=== PATIENT | female | born 1950 | race Caucasian/White ===

== ENCOUNTER 2016-09-09 15:26 | Emergency (ER) | payer MEDICARE, MEDICAID ==
[~2016-09-09] VITALS: Ht 165.1 cm; Wt 100.0 kg
[~2016-09-09 15:26] MED LIST: ASPI-973 PO; CHOL10008 PO; CITA10TA9 PO; CYAN100T PO; CYAN500 PO; CYCL5TAB PO; DOCU-41 PO; FERROUS GLUCON325 M1 PO; GAS RELIEF PO; GLIP10TA10 PO; GLUC-104 PO; HYDR-656 PO; LEVO125T6 PO; LOPE2CAP PO; LORA10CA PO; METO-272 PO; METO2.5T12 PO; MULT1CAP33 PO; NITR0.4T SL; PANT40TA3 PO; POLY17PO6 PO; POTA20TA7 PO; SENN-133 PO; SIMV80TA4 PO; TORS20TA PO; TRAM50TA2 PO
[2016-09-09 15:29] VITALS: BP 131/80; PULSE 70; RESP 18; O2SAT 97
--- NOTE | 2016-09-09 16:05 | ED.REPORT ---
HPI-General Illness Date of Service Sep 09, 2016 ED Provider: ClaraannDaivd 65 year old female with a history of hemorrhoids, constipation, polyps, diverticulosis, and sigmoid colon malformation presents to the ER complaining of a week of LLQ abdominal pain and rectal bleeding. She reports bright red blood in her stool on and off for the past week. Associated symptoms include constipation, melena, shortness of breath, and dizziness. Currently on Keflex to treat UTI. Patient has an extensive psychiatric history and is a rambling and tangential historian, making it difficult to obtain a coherent history. Nursing Notes Stated Complaint: RECTAL BLEEDING Chief Complaint: General Complaint Nursing Notes Reviewed: Yes Allergies: Coded Allergies: verapamil (Verified Allergy, Unknown, 04/25/15) Scheduled Aspirin (Aspirin) 81 Mg Tablet 81 MG PO DAILY Cholecalciferol (Vitamin D3) (Vitamin D3) 1,000 Unit Tab.chew 1,000 UNIT PO DAILY Citalopram (Citalopram) 10 Mg Tablet 10 MG PO AM Cyanocobalamin (Vitamin B12) 1,000 Mcg Tablet 1,000 MCG PO NOON Cyanocobalamin (Vitamin B-12) (Vitamin B-12) 100 Mcg Tablet 100 MCG PO DAILY Cyclobenzaprine (Cyclobenzaprine) 5 Mg Tablet 5 MG PO HS Docusate Sodium (Colace) 100 Mg Capsule 100 MG PO BID Ferrous Gluconate (Ferrous Gluconate) 325 Mg Tablet 325 MG PO DAILY Glipizide (Glipizide) 10 Mg Tablet 10 MG PO BID Glucosa Ferguson 2Kcl/Chondroitin Ferguson (Glucosamine Chondroitin Caplet) 1 Each Tablet 1 EACH PO DAILY Levothyroxine (Levothyroxine) 125 Mcg Tablet 125 MCG PO DAILY Loperamide (Loperamide) 2 Mg Capsule 2 MG PO PRN Metolazone (Metolazone) 2.5 Mg Tablet 2.5 MG PO DAILY Metoprolol Succinate ER (Metoprolol Succinate ER) 50 Mg Tab.er.24h 50 MG PO AM Multivitamin (Multivitamins) 1 Each Capsule 1 EACH PO DAILY Pantoprazole DR (Pantoprazole DR) 40 Mg Tablet.dr 40 MG PO BID Polyethylene Glycol 3350 (Miralax) 17 Gm Powd.pack 17 GM PO DAILY Potassium Chloride ER (Klor-Con M20) 20 Meq Tablet 20 MEQ PO QID Simvastatin (Simvastatin) 80 Mg Tablet 80 MG PO HS Torsemide (Demadex) 20 Mg Tablet 40 MG PO BID Scheduled PRN ([Gas Relief]) 125 MG PO PRN PRN Loratadine (Claritin) 10 Mg Capsule 10 MG PO DAILY PRN PRN allergies Nitroglycerin SL (Nitrostat) 0.4 Mg Tab.subl 0.4 MG SL Q5MIN PRN PRN For Chest Pain Sennosides (Senna) 8.6 Mg Tablet 8.6 MG PO DAILY PRN PRN For Constipation Tramadol (Tramadol) 50 Mg Tablet 50 MG PO TID PRN PRN For Pain hydrOXYzine Hcl (HydrOXYzine Hcl) 25 Mg Tablet 25 MG PO TID PRN PRN For Itching General Time Seen by MD: 16:05 Chief Complaint Abdominal pain, Other (Rectal Bleeding) Hx Obtained From: Patient Arrived By: Walk-in Sudden in Onset?: No Onset Occurred: 1 week ago Symptom Duration: Since onset Location: : Abdomen Quality: Painful Severity: Current: Moderate Severity: Maximum: Moderate Associated with: Reports: Dizziness, Shortness of breath Additional Notes: Constipation Past Medical History Past Medical History Edema, pericardial effusion, Hemorrhoids, constipation Per old reports: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 Otherwise patient lives on her own. Alcohol Use: Denies alcohol use Drug Use: Denies drug use Ambulatory Status Walker Review of Systems Full Review of Systems Constitutional: Denies: Chills, Fever Respiratory: Reports: Shortness of breath, Denies: Non-productive cough Cardiovascular: Denies: Chest pain GI: Reports: Abdominal pain, Bloody/tarry stool, Constipation, Hematochezia, Melena, Denies: Vomiting Neurologic: Reports: Dizziness Complete sys rev & neg: except as marked. Physical Exam Vital Signs Initial VS: Reviewed Head / Eyes: Atraumatic, Normocephalic Neck: Supple, Non-tender, Full range of motion Extremities: Vascular intact, Neuro intact, No swelling, No tenderness Skin: Warm, Dry, No cyanosis Neurologic: Alert, Oriented, Nonfocal General/Constitutional: Awake, Alert, Well developed, Well nourished Respiratory / Chest: Breath sounds NL, No respiratory distress, No rales, No rhonchi, No wheezing Cardiovascular: Heart rate NL, Regular rhythm, No gallop, No rubs Heart Sounds / Murmur: Positive: Systolic murmur present.. Bilateral lower extremity edema. Abdomen: Soft, No guarding, No rebound, No distention Tenderness/Guarding/Rebound: Positive: Tender LLQ... (Moderate), Tender diffuse Rectal for Blood: Positive: Blood - occult heme +, Blood, grossly present Rectum / Perineum Abnl: Positive: Hemorrhoid external (5), Hemorrhoid internal (1, Left lateral) Interpretation & Diagnostics Lab Results Interpretation Test 09/09/16 17:50 09/09/16 18:01 White Blood Count 7.7th/mm3 (3.8-10.1) Red Blood Count 5.04mil/mm3 (3.90-5.20) Hemoglobin 15.6g/dL (12.0-15.6) Hematocrit 48.0% (35.0-46.0) Mean Corpuscular Volume 95.2fL (81-100) Mean Corpuscular Hemoglobin 31.0pg (27.0-35.0) Mean Corpuscular Hemoglobin Concent 32.5% (32.0-37.0) Red Cell Distribution Width 16.6% (12.3-15.4) Platelet Count 149bil/L (150-400) Neutrophils (%) (Auto) 70.4% (40-74) Lymphocytes (%) (Auto) 15.2% (14-46) Monocytes (%) (Auto) 11.4% (4-12) Eosinophils (%) (Auto) 2.3% (0-5) Basophils (%) (Auto) 0.4% (0-3) Sodium Level 136mEq/L (134-144) Potassium Level 3.5mEq/L (3.5-5.2) Chloride Level 95mEq/L (97-108) Carbon Dioxide Level 27mmol/L (18-29) Blood Urea Nitrogen 23mg/dL (8-27) Creatinine 1.11mg/dL (0.57-1.00) Estimat Glomerular Filtration Rate 71mL/min (>59) Glucose Level 96mg/dL (60-99) Calcium Level 9.8mg/dL (8.5-10.1) Total Bilirubin 0.7mg/dL (0.0-1.2) Aspartate Amino Transf (AST/SGOT) 22U/L (0-50) Alanine Aminotransferase (ALT/SGPT) 16U/L (0-32) Alkaline Phosphatase 130U/L (25-165) Total Protein 8.8g/dL (6.4-8.4) Albumin 3.8g/dL (3.4-5.0) Hold [place] Top Tube Received (Received) Re-Eval/Medical Decision Med Decision/Clinical Course Patient does have noted rectal bleeding but given that this has been ongoing for over 1 week intermittently and that her vitals and blood counts are stable/ normal here today I have reassured her and advised her to follow-up as an outpatient. I suggested she keep her stool soft with stool softeners.. Patient understands and agrees with the plan. She is reassured by her workup today Source of Hx: Old records Time of Eval: 18:23 Re-Evaluation/Progress Note: Discussed lab results and plan to discharge. Patient is amenable to the plan. Return precautions given. All other questions addressed. Counseled Regarding: Diagnosis, Lab results, Need for follow-up, When/why to return to ED Discharge & Departure Primary Impression: Hemorrhoid Hemorrhoid type: unspecified Qualified Code: K64.9 - Unspecified hemorrhoids Additional Impression: Rectal bleeding Disposition: Home Discharge Condition All VS Reviewed: Yes Condition: Stable Patient Instructions: Hemorrhoids (DC), Rectal Bleeding (DC) Additional Instructions: Your workup today was reassuring. I do not believe that there is any dangerous cause for your symptoms at this time. I think that your hemorrhoids are the source of your bleeding. Your blood counts were all normal. Follow up with your primary care provider this week. Return to the ER if you develop any worsening or concerning symptoms. Referrals: Brittany Leyva MD (PCP) Scarlet Attestation Portions of this note were transcribed by Cameron Long. I, Dr. Torres personally performed the history, physical exam and medical decision-making; I reviewed and confirmed the accuracy of the information in the transcribed note. Signed by: Scarlet Joseph, 09/09/2016 and 18:28 copies to: Brittany Leyva MD, Gary R DO Sep 09, 2016 16:05 CAMERON LONG Sep 09, 2016 17:05
[2016-09-09 18:16] LABS: BASOPHILS % (AUTO) 0.4 % (0-3); EOSINOPHILS % (AUTO) 2.3 % (0-5); MONOCYTES % (AUTO) 11.4 % (4-12); Mean Corpuscular Volume 95.2 fL (81-100); NEUTROPHILS % (AUTO) 70.4 % (40-74); Platelet Count 149 bil/L (150-400)
[2016-09-09 18:54] VITALS: BP 129/79; PULSE 70; RESP 18; O2SAT 97
== END 2016-09-09 18:56 | disposition home or self-care (01) ==
LOC: SED 15:26
DX: K64.8 Other hemorrhoids (principal); K62.5 Hemorrhage of anus and rectum; I25.10 Atherosclerotic heart disease of native coronary artery without angina pectoris; I11.0 Hypertensive heart disease with heart failure; I50.9 Heart failure, unspecified; E11.9 Type 2 diabetes mellitus without complications; F17.200 Nicotine dependence, unspecified, uncomplicated; Z79.82 Long term (current) use of aspirin
CPT/HCPCS: 36415; 80053; 82272; 85025; 99283; G0463

== ENCOUNTER 2016-11-08 09:12 | Inpatient (IN) | payer MEDICARE, MEDICAID ==
[2016-11-08] VITALS (9 sets, daily range): BP systolic 97–112; BP diastolic 52–74; PULSE 72–80; RESP 16–20; O2SAT 96–98
[~2016-11-08] VITALS: Ht 170.2 cm; Wt 102.7 kg
--- NOTE | 2016-11-08 09:38 | ED.REPORT ---
HPI-General Illness Date of Service Nov 08, 2016 ED Provider: Isai Angel MD The patient is a 65 year old female with a history of hemorrhoids, constipation , polyps, diverticulosis, and sigmoid colon malformation who presents to the ED via EMS due to dizziness onset today. Associated symptoms include nausea, trouble sleeping, weak, fatigue, and black stool. She had blood work done earlier today which showed extremely low iron levels. She had an endoscopy procedure done 06/17/[address] Tim Allen (See PMH) Her PCP is Dr. Jackie Leyva at [facility]. Patient has an extensive psychiatric history and is a rambling and tangential historian, making it difficult to obtain a coherent history. Nursing Notes Stated Complaint: DIZZINESS Chief Complaint: General Complaint Nursing Notes Reviewed: Yes Allergies: Coded Allergies: Penicillins (Verified Allergy, Severe, 11/08/16) azithromycin (Verified Allergy, Severe, 11/08/16) Tetracyclines (Verified Allergy, Unknown, 11/08/16) verapamil (Verified Allergy, Unknown, 04/25/15) Uncoded Allergies: ERYTHROMYCINS (Allergy, Severe, 11/08/16) NAPROSEN (Adverse Reaction, Severe, 11/08/16) Scheduled Aspirin (Aspirin) 81 Mg Tablet 81 MG PO DAILY Cholecalciferol (Vitamin D3) (Vitamin D3) 1,000 Unit Tab.chew 1,000 UNIT PO DAILY Citalopram (Citalopram) 10 Mg Tablet 10 MG PO AM Cyanocobalamin (Vitamin B12) 1,000 Mcg Tablet 1,000 MCG PO NOON Cyanocobalamin (Vitamin B-12) (Vitamin B-12) 100 Mcg Tablet 100 MCG PO DAILY Cyclobenzaprine (Cyclobenzaprine) 5 Mg Tablet 5 MG PO HS Docusate Sodium (Colace) 100 Mg Capsule 100 MG PO BID Ferrous Gluconate (Ferrous Gluconate) 325 Mg Tablet 325 MG PO DAILY Glipizide (Glipizide) 10 Mg Tablet 10 MG PO BID Glucosa Ferguson 2Kcl/Chondroitin Ferguson (Glucosamine Chondroitin Caplet) 1 Each Tablet 1 EACH PO DAILY Levothyroxine (Levothyroxine) 125 Mcg Tablet 125 MCG PO DAILY Loperamide (Loperamide) 2 Mg Capsule 2 MG PO PRN Metolazone (Metolazone) 2.5 Mg Tablet 2.5 MG PO DAILY Metoprolol Succinate ER (Metoprolol Succinate ER) 50 Mg Tab.er.24h 50 MG PO AM Multivitamin (Multivitamins) 1 Each Capsule 1 EACH PO DAILY Pantoprazole DR (Pantoprazole DR) 40 Mg Tablet.dr 40 MG PO BID Polyethylene Glycol 3350 (Miralax) 17 Gm Powd.pack 17 GM PO DAILY Potassium Chloride ER (Klor-Con M20) 20 Meq Tablet 20 MEQ PO QID Simvastatin (Simvastatin) 80 Mg Tablet 80 MG PO HS Torsemide (Demadex) 20 Mg Tablet 40 MG PO BID Scheduled PRN ([Gas Relief]) 125 MG PO PRN PRN Loratadine (Claritin) 10 Mg Capsule 10 MG PO DAILY PRN PRN allergies Nitroglycerin SL (Nitrostat) 0.4 Mg Tab.subl 0.4 MG SL Q5MIN PRN PRN For Chest Pain Sennosides (Senna) 8.6 Mg Tablet 8.6 MG PO DAILY PRN PRN For Constipation Tramadol (Tramadol) 50 Mg Tablet 50 MG PO TID PRN PRN For Pain hydrOXYzine Hcl (HydrOXYzine Hcl) 25 Mg Tablet 25 MG PO TID PRN PRN For Itching General Time Seen by MD: 09:36 Chief Complaint Dizziness Hx Obtained From: Patient Arrived By: Ambulance Sudden in Onset?: Yes Onset Occurred: Yesterday Symptom Duration: Since onset Severity: Current: No pain currently Recent Healthcare: Recent doctor visit Similar Sx Previous: Yes Past Medical History Past Medical History Notes: Endoscopy Procedure 06/17/13: ENDOSCOPIC DIAGNOSES: 1. Diverticulosis. 2. Hemorrhoids. 3. Colon polyps. 4. Possible sigmoid arteriovenous malformation versus flat polyp. RECOMMENDATIONS: 1. Await histopathology to determine the best recommendation for surveillance colonoscopy. 2. No obvious findings were made today to account for the patient's hematologic picture. If anemia continues or the patient continues to demonstrate heme-positive stool, then I would recommend she be considered for capsule endoscopy. 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 Otherwise patient lives on her own. Alcohol Use: Denies alcohol use Drug Use: Denies drug use Ambulatory Status Walker Review of Systems Full Review of Systems Constitutional: Reports: Fatigue, Weakness - generalized GI: Reports: Bloody/tarry stool, Nausea Neurologic: Reports: Dizziness Complete sys rev & neg: except as marked. Physical Exam Vital Signs Vital Signs Date Time Temp Pulse Resp B/P Pulse Ox O2 Delivery O2 Flow Rate FiO2 11/08/16 12:40 76 18 99/53 98 Room Air 11/08/16 09:28 36.7 75 18 111/54 97 Room Air Initial VS: Reviewed Head / Eyes: Atraumatic, Normocephalic ENT: Mucous membranes moist, Conjunctiva normal Neck: Supple, Non-tender Extremities: Vascular intact, No swelling Psychiatric: Mood/affect normal, Behavior normal General/Constitutional: Awake, Alert, Cooperative Respiratory / Chest: Atraumatic, Breath sounds NL, Breath sounds = bilat Heart Sounds / Murmur: Positive: Murmur present... (III/) Abdomen: No guarding, No palpable mass Tenderness/Guarding/Rebound: Positive: Tender LLQ... Rectal for Blood: Positive: Blood - occult heme + (mild) brown stool Interpretation & Diagnostics Lab Results Interpretation Result Diagram: 11/08/16 1047 11/08/16 1047 Test 11/08/16 10:47 11/08/16 11:10 White Blood Count 12.1th/mm3 (3.8-10.1) Red Blood Count 2.65mil/mm3 (3.90-5.20) Hemoglobin 7.7g/dL (12.0-15.6) Hematocrit 24.1% (35.0-46.0) Mean Corpuscular Volume 90.9fL (81-100) Mean Corpuscular Hemoglobin 29.1pg (27.0-35.0) Mean Corpuscular Hemoglobin Concent 32.0% (32.0-37.0) Red Cell Distribution Width 15.3% (12.3-15.4) Platelet Count 328bil/L (150-400) Neutrophils (%) (Auto) 79.6% (40-74) Lymphocytes (%) (Auto) 10.4% (14-46) Monocytes (%) (Auto) 8.8% (4-12) Eosinophils (%) (Auto) 0.3% (0-5) Basophils (%) (Auto) 0.2% (0-3) Sodium Level 116mEq/L (134-144) Potassium Level 3.8mEq/L (3.5-5.2) Chloride Level 77mEq/L (97-108) Carbon Dioxide Level 20mmol/L (18-29) Blood Urea Nitrogen 40mg/dL (8-27) Creatinine 1.84mg/dL (0.57-1.00) Estimat Glomerular Filtration Rate 40mL/min (>59) Glucose Level 199mg/dL (60-99) Calcium Level 9.3mg/dL (8.5-10.1) Magnesium Level 2.0mg/dL (1.6-2.6) Total Bilirubin 0.6mg/dL (0.0-1.2) Aspartate Amino Transf (AST/SGOT) 28U/L (0-50) Alanine Aminotransferase (ALT/SGPT) 18U/L (0-32) Alkaline Phosphatase 111U/L (25-165) Total Protein 7.5g/dL (6.4-8.4) Albumin 3.7g/dL (3.4-5.0) Urine Color Straw (YELLOW) Urine Appearance Clear (CLEAR,HAZY) Urine pH 6.5 (5.0-8.0) Urine Specific [place] 1.010 (1.003-1.035) Urine Protein Negativemg/dL (NEG,TRACE) Urine Glucose (UA) Negativemg/dL (NEGATIVE) Urine Ketones Negativemg/dL (NEGATIVE) Urine Occult Blood Negative (NEGATIVE) Urine Nitrite Negative (NEGATIVE) Urine Bilirubin Negative (NEGATIVE) Urine Urobilinogen Normalmg/dL (NORMAL) Urine Leukocyte Esterase Negative (NEGATIVE) Urine RBC 0-2/hpf (0-2) Urine WBC 0-5/hpf (0-5) Urine Epithelial Cells Moderate/hpf (NONE-MOD) Urine Crystals None seen (NONE SEEN) Urine Bacteria Few/hpf (NONE-FEW) Urine Hyaline Casts None/lpf (NONE) Urine Granular Casts None seen (NONE SEEN) Urine Waxy Casts None seen (NONE SEEN) Urine Red Blood Cell Casts None seen (NONE SEEN) Urine White Blood Cell Casts None seen (NONE SEEN) Urine Mucus None seen (None Seen) Urine Trichomonas None seen (NONE SEEN) Urine Yeast None (NONE SEEN) Urinalysis Comment None Urine Culture Reflexed Not indicated Re-Eval/Medical Decision Time of Eval: 13:10 Re-Evaluation/Progress Note: Pt rechecked. Informed of diagnosis of severe anemia, hyponatremia and need for admission. Pt understands and agrees with plan. All questions addressed. Consultation : Referral / Consult Name: Diaz Rock MD Call Returned at: 13:26 Car Dumper Operator: Agrees with eval, Agrees with plan Note: Case discussed. Dr. Rock agrees with plan. Counseled Regarding: Diagnosis, Lab results, Need for admission Discharge & Departure Primary Impression: Hyponatremia Additional Impression: Severe anemia Disposition: ADMITTED TO HOSPITAL Discharge Condition All VS Reviewed: Yes Condition: Stable Referrals: Brittany Leyva MD (PCP) Scribe Attestation Portion of this note were transcribed by Victoria Mix. I, Dr. Angel, personally performed the history, physical exam, and medical decision-making: I reviewed and confirmed the accuracy for the information in the transcribed note. Signed by: jai Stephens, 11/28/16 1400 copies to: Brittany Leyva MD, Kirk H MD Nov 08, 2016 09:37 Victoria Mix Nov 08, 2016 10:00
[2016-11-08] MEDS ORDERED: Ondansetron 2 mg/mL 2 mL Inj IVPUSH ONE (10:00)
[2016-11-08] MEDS ORDERED: Pantoprazole 4 mg/mL 10 mL Inj IVPUSH ONE (10:00)
[2016-11-08 11:03] LABS: BASOPHILS % (AUTO) 0.2 % (0-3); EOSINOPHILS % (AUTO) 0.3 % (0-5); MONOCYTES % (AUTO) 8.8 % (4-12); Mean Corpuscular Hemoglobin 29.1 pg (27.0-35.0); Mean Corpuscular Volume 90.9 fL (81-100); NEUTROPHILS % (AUTO) 79.6 % (40-74); Platelet Count 328 bil/L (150-400)
[2016-11-08 11:37] LABS: APPEARANCE,URINE CLEAR (CLEAR,HAZY); COLOR,URINE STRAW (YELLOW); PH,URINE 6.5 (5.0-8.0)
[2016-11-08 11:38] LABS: OCCULT BLOOD,URINE NEGATIVE (NEGATIVE); UROBILINOGEN,URINE NORMAL (NORMAL)
[2016-11-08] MEDS ORDERED: Alum-Mag Hydrox-Simeth 30 mL Suspension PO PRN (14:00)
[2016-11-08] MEDS ORDERED: Ondansetron 2 mg/mL 2 mL Inj IVPUSH PRN (14:00)
[2016-11-08] MEDS ORDERED: IPRA3AMP IH (14:30)
[2016-11-08] MEDS ORDERED: ALBU2.5V4 INHALATION (14:30)
[2016-11-08] MEDS ORDERED: BUTA1CAP39 PO (14:30)
--- NOTE | 2016-11-08 14:34 | NUR ---
[place] [facility] [place] [id number] at approx 1415 via w/c. Able to tx self from w/c to bed. Flat affect noted. Requesting various medications, home meds not yet ordered. Pt refuses to review meds w/ RN. Sister in room states someone in ED has already gone over med rec and is waiting for further information from pt's pharmacy.
[2016-11-08] MEDS ORDERED: SIME125C PO (14:36)
[2016-11-08] MEDS ORDERED: CYCL10TA9 PO (14:36)
[2016-11-08] MEDS ORDERED: CLOT21CR7 TOPICAL (14:36)
[2016-11-08] MEDS ORDERED: CALC500C PO (14:36)
[2016-11-08] MEDS ORDERED: SIMV40TA5 PO (14:39)
[2016-11-08] MEDS ORDERED: RANI150C4 PO (14:39)
[2016-11-08] MEDS ORDERED: ALBU8.5H2 INHALATION (14:39)
[2016-11-08] MEDS ORDERED: FLUT16SP NS (14:39)
[2016-11-08] MEDS ORDERED: NIT3 PO (14:39)
[2016-11-08] MEDS ORDERED: HYDR30CR76 RC (14:43)
[2016-11-08] MEDS ORDERED: MAGN500C4 PO (14:43)
[2016-11-08] MEDS ORDERED: INSU100V7 SUBQ (14:43)
[2016-11-08] MEDS ORDERED: IBUP-1827 PO (14:43)
[2016-11-08] MEDS ORDERED: ACET-171 PO (14:45)
[2016-11-08] MEDS ORDERED: ZYL100 PO (14:46)
[2016-11-08] MEDS ORDERED: OMEP20CA11 PO (14:46)
[2016-11-08] MEDS ORDERED: ASCO125T PO (14:49)
[2016-11-08] MEDS: Fluticasone 0.05% 15 Spray/2 Gm 16 Gm Nasal Spray NASAL SCH ×2 (16:00→20:30)
[2016-11-08] MEDS ORDERED: Hydrocortisone 2.5% 28 Gm Cream TOPICAL PRN (16:00)
--- NOTE | 2016-11-08 17:24 | PCM.HPMED ---
Subjective Date of Service Nov 08, 2016 Primary Provider: Admitting Physician: Ciarra Rock DO Primary Care Physician: Brittany Leyva MD Attending Physician: Ciarra Rock DO Admit Status: From the Emergency Department Chief Complaint: Symptomatic anemia, hyponatremia, acute renal failure History of Present Illness: This is a 65-year-old female with past medical history of diverticulosis, sigmoid colon malfunction, pericardial effusions, anemia status post transfusions, cognitive problems, CHF, CAD, status post [place], status post mitral valve surgery 2, diabetes, hypertension is presenting to the ER from her supervisor color making's clinic. It appears that patient's sodium was thought to be very low and she was sent to the ER from her clinic. In the ER hemoglobin was 7.7 sodium was 116. She is not a great historian and rambles on and go soft tangents, her sister is present but states "it is all in the records", and states she does not remember things very well. Sister is patient's POA. Patient states that she is given torsemide, metolazone by her marketing reporting analyst. She sees him every [address] Peacock her marketing reporting analyst and Dr. Leyva is her PCP. She also sees Dr. aguila in [place]. Patient's sister did say that last night patient's caregiver called sister about patient not acting quite like herself. Patient herself states that she has hemorrhoids and had bleeding from that in the past. Her stool guaiac in the ER was positive. Her blood pressure at the time of arrival was 99/53. Off note patient did have an endoscopy in 2012 that showed diverticulosis, hemorrhoids and there was a recommendation to follow with capsule endoscopy if bleeding recurs. In the room patient is conversing asking for her fluid, coffee. She was a lot more cooperative once the food and copy was given to her. Sister states that patient is at her baseline at this point. Review of Systems: Patient is endorsing dizziness, occasional hematochezia, nausea that has resolved, fatigue but denies GERD, polyuria, diarrhea. She has no pain anywhere. She complains of her leg swelling which seems to have been getting worse. She denies shortness of breath all other ROS negative except as stated here. In the ER stool is thought to be mildly positive. No flavia blood per rectum was seen Allergies Coded Allergies: Penicillins (Verified Allergy, Severe, 4/5/17) azithromycin (Verified Allergy, Severe, 11/08/16) Tetracyclines (Verified Allergy, Unknown, 11/08/16) verapamil (Verified Allergy, Unknown, 04/25/15) Uncoded Allergies: ERYTHROMYCINS (Allergy, Severe, 11/08/16) NAPROSEN (Adverse Reaction, Severe, 11/08/16) Home Medications Home medications are reviewed, and the consult. 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 Surgical History Mitral valve surgery 2, left knee surgery Social History Hx Alcohol Use: No Hx Substance Use: No Hx Tobacco Use: Yes (32 YEAR SMOKER) Smoking Status: Current Every Day Smoker Living Arrangement: Alone (she has a caregiver 3 days a week) Exam Vital Signs Vital Sign - Last Date Time Temp Pulse Resp B/P Pulse Ox O2 Delivery O2 Flow Rate FiO2 11/08/16 17:06 36.4 78 18 97/52 98 Room Air Exam Gen.: Mildly agitated because she is hungry HEENT: Normocephalic, atraumatic Heart: Mitral valve click can be here heard, regular rate Lungs: Fine crackles bilaterally Abdomen obese, nontender, soft, normal bowel sounds Extremities: 2+ pitting edema Neuro: Alert, oriented by 3 Psych mildly anxious, flat expression Lab and Diagnostics Result Diagram: 11/08/16 1047 11/08/16 1047 X-Rays, CTs and MRIs None 12-lead ECG None Assessment & Plan This is a 65-year-old female with past medical history of medication usage for diuresis of her legs, history of previous anemia status post transfusions, 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 She also appears to be in acute renal failure. Acute assessments Assessment #1 acute kidney injury: Likely prerenal from aggressive diuresis --Creatinine of 1.84, from her previous admission she did have this level creatinine before, unclear what exactly her baseline is as she did improve to 1.0 at the time of discharge back in June 2016 --Elevated uric acid as indicated above diuresis using diuretics -- Patient is currently complaining of not getting her diuretics today -- This appears to be prerenal, FE urea tests are ordered -- Repeat kidney function labs: Repeat labs on the floor showed sodium equals 113 --Renal ultrasound, magnesium phosphorus, uric acid, urine osm, serum osm, urine sodium, urine urea, TSH, cortisol, BNP are ordered -- Patient is given IV fluids at normal saline running at 100 mL per hour after the blood draw -- Consulted nephrology, Dr. wright is aware we appreciate the recommendations ( which include 500 mL bolus now, repeat renal panel later in the night) -- Plan to contact Dr. Leyva for some of the records -- Plan to obtain her echo results to understand her ejection fraction -- Hold all nephrotoxic medications Assessment #2 hyponatremia: Likely from aggressive diuresis and volume depletion ---urine osm, serum osm, urine sodium, urine urea, TSH, cortisol, BNP are ordered -- Follow-ups sodium upon arrival to floor is 113 -- Nephrology is consulted, there admission's are appreciated -- She started on normal saline 100 mL/h, 500 mL bolus per nephrology's given -- Repeat sodium levels at 6 PM and then again after blood transfusion Assessment #2 anemia likely due to blood loss likely secondary to AV malformation based on her history -- Type and screen, crossmatch one unit of blood ( we initially crossmatch [address] wright recommends starting with 1 this patient has a history of CHF) -- Iron panel, ferritin, TIBC, folate, B12, reticulocyte count were ordered -- We will consult GI -- Keep patient nothing by mouth overnight for a possible colonoscopy tomorrow -- Repeat H&H at 6 PM and then after the transfusion Assessment #3 hypotension -- Patient's blood pressure is between 90-100 systolic, diastolic 50-60. She seems to be maintaining this so far -- Small bolus challenge per nephrology as above -- Normal 100 mL/h +1 unit of PRBC -- Hold metoprolol Chronic assessments Assessment #1 diabetes mellitus -- Plan on giving patient's Lantus 20 units daily at bedtime plus low sliding scale -- Nothing by mouth after midnight, diabetic diet prior to that -- Hold glipizide Assessment #2 hypertension: --Currently holding her medications, diuretics -- Fluids as above -- Patient is currently stable -- Hold metoprolol, hold hydralazine Assessment #3 congestive heart failure of unknown type -- Holding diuresis as above -- Hold metoprolol Assessment #4 hypothyroidism -- Continue levothyroxine Assessment #5 CAD -- EKG, baseline chest x-ray -- Telemonitoring DVT prophylaxis: We will hold chemical DVT prophylaxis due to bleeding risk CODE STATUS: Unable to discuss with patient today, will discuss with her and sister tomorrow Alternate decision-maker: Sr. Marylin Alcaraz, 36 0-3 9 1-2 272 VTE Prophylaxis: MAK Sargent Aruna DO Nov 08, 2016 17:24
[2016-11-08] MEDS ORDERED: Glucose 40% Oral Gel 15 Gm Tube PO PRN (17:25)
[2016-11-08] MEDS ORDERED: Albuterol 2.5 mg/3 mL Inhalation Solution NEB PRN (17:35)
[2016-11-08] MEDS: Potassium Chloride 20 mEq SR Tablet PO SCH ×2 (17:39→21:35)
[2016-11-08] MEDS: 0.9% Sodium Chloride 1,000 ML IV SCH (17:43)
[2016-11-08 18:02] LABS: BASOPHILS % (AUTO) 0.4 % (0-3); EOSINOPHILS % (AUTO) 0.7 % (0-5); MONOCYTES % (AUTO) 11.1 % (4-12); Mean Corpuscular Hemoglobin 29.7 pg (27.0-35.0); Mean Corpuscular Volume 90.8 fL (81-100); NEUTROPHILS % (AUTO) 74.7 % (40-74); Platelet Count 301 bil/L (150-400)
[2016-11-08] MEDS: Insulin LISPRO 300 Unit/3 mL Inj SUBQ SCH ×2 (18:25→21:43)
[2016-11-08 18:33] LABS: OSMOLALITY, URINE 274 mOs/kH2O (250-1200)
[2016-11-08 18:38] LABS: Phosphorus 4.4 mg/dL (2.5-4.9)
[2016-11-08] MEDS ORDERED: 0.9% Sodium Chloride 500 ML IV ONE (19:30)
[2016-11-08 19:54] LABS: Unsaturated Iron Binding 417.9 ug/dL
[2016-11-08] MEDS: Albuterol-Ipratropium 3 mL Inhalation Solution NEB SCH (20:30)
[2016-11-08] MEDS ORDERED: 0.9% Sodium Chloride 250 ML ONE (21:09)
[2016-11-08] MEDS: Insulin GLARgine 100 Unit/mL Syringe SUBQ SCH (21:42)
[2016-11-09] VITALS (10 sets, daily range): BP systolic 106–118; BP diastolic 63–79; PULSE 70–82; RESP 16–18; O2SAT 89–99
--- NOTE | 2016-11-09 02:23 | NUR ---
EKG/NEB Pt Bárbara Leon RT, attempted to do EKG and give neb txment, but pt refused and unable to tolerate. Orders still active, will pass on to day shift to try repeat.
[2016-11-09] MEDS: Albuterol-Ipratropium 3 mL Inhalation Solution NEB SCH ×4 (02:30→20:30)
[2016-11-09] MEDS: 0.9% Sodium Chloride 1,000 ML IV SCH (03:01)
--- NOTE | 2016-11-09 03:32 | NUR ---
BLOOD Pt received 1 unit of PRBC as ordered. Per Dr. Rock, will wait to give 2nd unit. Before blood administration, H/H 6.8/20.8. Na 113. Both critical. BP was in 100s/50s. Pt tolerated 1 unit well, some crackles noted before and after in bases. BP went up to 117/68. H/H now 7.6/23.7. Na 121. Pt currently resting. Continuing care.
[2016-11-09 05:59] LABS: BASOPHILS % (AUTO) 0.3 % (0-3); EOSINOPHILS % (AUTO) 1.1 % (0-5); MONOCYTES % (AUTO) 13.9 % (4-12); Mean Corpuscular Hemoglobin 29.4 pg (27.0-35.0); Mean Corpuscular Volume 89.8 fL (81-100); Platelet Count 260 bil/L (150-400)
--- NOTE | 2016-11-09 06:24 | NUR ---
RECTAL BLEEDING Upon standing from [facility], pt had voided, no BM. Noticed drips of blood in urine. Wiped rectal area, wipe came away bloody. Paged Dr. Phillips. Awaiting response. Addendum: 11/09/16 at 0634 by FLAVIA SANCHEZ RN Dr. Phillips called. Verified GI would be involved and would pass on for day shift to address. Will pass on in report.
[2016-11-09] MEDS ORDERED: Pantoprazole 40 mg ER24 Tablet PO SCH (06:30)
[2016-11-09] MEDS: Potassium Chloride 20 mEq SR Tablet PO SCH (07:30)
[2016-11-09] MEDS: Insulin LISPRO 300 Unit/3 mL Inj SUBQ SCH ×5 (07:35→22:49)
--- NOTE | 2016-11-09 08:54 | DRSVH ---
PROCEDURE: X-RAY CHEST ONE VIEW ([id number]) INDICATIONS: elevated BNP, check for CHF TECHNIQUE: One view of the chest was acquired. COMPARISON: [facility], CR, XR CHEST 1VW, 04/28/2015, 4:12. FINDINGS: Surgical changes and devices: None. Lungs and pleura: No pleural effusions or pneumothorax. Lungs are clear. Mediastinum: Mediastinal contours appear normal. Heart size is enlarged. Bones and chest wall: No suspicious bony lesions. Overlying soft tissues appear unremarkable. IMPRESSION: No acute process. Cardiomegaly. Dictated by: Rafael Cisse M.D. on 11/09/2016 at 8:53 Approved by: Rafael Cisse M.D. on 11/09/2016 at 8:53
[2016-11-09] MEDS: Fluticasone 0.05% 15 Spray/2 Gm 16 Gm Nasal Spray NASAL SCH ×2 (09:12→20:07)
[2016-11-09] MEDS: Calcium Carbonate (Oyster Shell) 500 mg Tablet PO SCH (09:13)
[2016-11-09 09:15] LABS: Vitamin B12 >1999 pg/mL (211-946)
[2016-11-09] MEDS: Polyethylene Glycol (PEG) 17 Gm Powder PO SCH (09:15)
[2016-11-09] MEDS ORDERED: Iron Sucrose Inj 200 MG in 0.9% Sodium Chloride 100 ML IV ONE (11:10)
[2016-11-09] MEDS ORDERED: Darbepoetin Alfa 60 mCg/0.3 mL Inj SUBQ ONE (11:10)
--- NOTE | 2016-11-09 11:44 | DRSVH ---
PROCEDURE: US RENAL SONOGRAM INDICATIONS: acute renal failure TECHNIQUE: Real-time scanning was performed of the kidneys and bladder, with image documentation. COMPARISON: None. FINDINGS: Kidneys: Kidneys are normal in size. Right kidney measures 11.6 cm long; left kidney measures 10.1 cm long. Right renal cortical thickness is 1.2 cm; left renal cortical thickness is 1.0 cm. Renal c ortical echotexture is normal. No hydronephrosis or nephrolithiasis. No suspicious solid mass lesio ns. Bladder: Pre-void bladder volume is 275 mL. Post-void residual is 109 mL. Pre-void images demonstr ate no intraluminal masses or stones. On pre-void images, neither ureteral jets are noted with color Doppler interrogation. (Of note, ureteral jets may not be detectable in up to 25% of cases due to i nsufficient differences in specific gravity between ureteral and bladder urine). Miscellaneous: No free pelvic fluid. IMPRESSION: No hydronephrosis or nephrolithiasis found over the kidneys bilaterally but there is a mo derate post void residual of 109 cc in the setting of the prevoid bladder volume of 275 cc. No bladd er calculus found. Dictated by: Toi Bragg M.D. on 11/09/2016 at 11:41 Approved by: Toi Bragg M.D. on 11/09/2016 at 11:42
--- NOTE | 2016-11-09 11:57 | CONS ---
[address] [address] CONSULTATION REPORT PATIENT: DANNIELLE GUIDRY : 1950 MR#: [id number] ADMIT: 11/08/2016 JOB ID: [id number] DATE OF SERVICE: 11/09/2016 RENAL CONSULTATION: The patient is a very pleasant 65-year-old white female, who was admitted to [facility] for generalized weakness, melena and hyponatremia. At time of admission, her serum sodium was 116. She also had evidence of some mild acute on chronic kidney injury and her hemoglobin was 6.5. Renal consultation is being sought for further evaluation of her chronic kidney disease. She has a history of multiple arterial venous malformations and has had GI bleeds in the past. She has been followed by Dr. Allen from . She states she has a history of hemorrhoids and questionable diverticular disease prior to admission. She states that for several days prior to admission she had been having some lower abdominal pain and black tarry stools. She also has a longstanding history of mild chronic kidney disease secondary to diabetic nephropathy and hypertensive heart disease and hypertensive nephrosclerosis. She states that she has had diabetes for some time which has been complicated by peripheral neuropathy and possible retinopathy. However, the patient is unable to fully explain the nature of her eye problem. She also states she has had proteinuria and recurrent urinary tract infections in the past. There is no history of any recent hematuria, renolithiasis, or frequent use of nonsteroidal anti-inflammatories. She does have a history of "rheumatoid arthritis." It was during an evaluation for this potential collagen vascular disease that she was found to be significantly anemic and referred to the emergency department. PAST MEDICAL HISTORY: Is significant for: 1. Longstanding psychiatric illness. 2. Ihm-dltoyuh-ywytcjqeh diabetes mellitus. 3. Hypertension with hypertensive heart disease and hypertensive nephrosclerosis. 4. Longstanding psychiatric illness. However, I was unable to ascertain whether she had been taking lithium in the past. 5. She also has a history of multiple arteriovenous malformations as detailed above. 6. Pericardial effusions. 7. Coronary artery disease. 8. Congestive heart failure. However, an echocardiogram from two years ago showed a normal ejection fraction. 9. She has also had two mitral valve replacements. 10. She also has a history of hyperlipidemia. PAST SURGICAL HISTORY: Is significant for two mitral valve replacements. ALLERGIES: She is allergic to PENICILLIN, ERYTHROMYCIN, TETRACYCLINE, VERAPAMIL and NONSTEROIDALS. SOCIAL HISTORY: She denies a history of any alcohol or illicit drug use but states that she does smoke half a pack of cigarettes daily and has for a number of decades. FAMILY HISTORY: Is significant for some type of renal problems which the patient was unable to fully specify. MEDICATIONS: At time of admission include aspirin, vitamin D, citalopram, B12, cyclobenzaprine, docusate, ferrous sulfate, glipizide, levothyroxine, metolazone, torsemide, metoprolol, Protonix, potassium chloride and simvastatin. REVIEW OF SYSTEMS: She does state that she has a chronic cough and productive of mucoid sputum, some two-pillow orthopnea. Her cough is greater in the morning and this has been going on for a number of years. She also states she uses inhalers intermittently. She also complains of some lower extremity "edema." Otherwise she denies any recent chest pain. She also denies any nausea or vomiting. There is no history of any jaundice or hepatitis. She denies any skin rashes, fever or chills. PHYSICAL EXAMINATION: Reveals an obese 65-year-old white female, who was alert and oriented x3, in no distress at the time my evaluation. Her blood pressure is 110/70, pulse rate is 72. HEENT examination is remarkable for some mild exophthalmos bilaterally and pale sclerae. Neck is supple without adenopathy, thyromegaly or jugular venous distention. Lungs showed some increase in AP diameter bilaterally. There were diffuse rhonchi throughout both lung reynolds and end-expiratory wheezes throughout. There were no rales noted. Heart sounds were distant and irregularly irregular. Abdomen was mildly pendulous but non tense. Bowel sounds were somewhat diminished. There was no tenderness, rebound, guarding, masses or hepatosplenomegaly. The liver was nonpulsatile and there was no evidence for any hepatojugular reflux. Extremities showed some trivial pitting lower extremity edema. However, she did have some evidence of early lymphedema in both legs. She also had evidence of lipodystrophy diabetic with brawny induration to both distal lower extremities. The brawny induration is circumferential in nature. Otherwise there was no clubbing, cyanosis, or half and half nails. Skin turgor was good and there is no evidence of any rashes. LABORATORY EXAMINATION: At time of admission, her hemoglobin was 6.5, her hematocrit was 20.3. Red cell indices, platelet count and differential were normal. Her retic count was 10% and this morning her sodium is 122, potassium 4.4, chloride of 86, bicarbonate 22, BUN and creatinine were 35 and 1.57, which is down considerably from her admission. Her transferrin saturation was 3%, and her TSH was 2.3. Urinalysis showed a specific gravity of 1.010, pH was 6.5. Tests for protein, glucose, ketones were negative. Her urine osmolarity was 274 with a urine sodium of 17. IMPRESSION: 1. Hyponatremia secondary to combination diuretics and acute kidney injury. 2. Acute kidney injury secondary to gastrointestinal bleed. 3. Diabetic nephropathy. 4. Hypertension with hypertensive heart disease and hypertensive nephrosclerosis. 5. Iron-deficiency anemia superimposed upon normocytic, normochromic anemia which appears to be multifactorial. RECOMMENDATION: I would like to stop the diuretics at this time. I would also like to restrict her fluids to approximately 1500 mL of fluid per day. We need to continue to follow her lab. I would also, in the mean time, like to obtain a serum protein electrophoresis, a uric acid level, microalbumin to creatinine ratio, and a renal ultrasound. If an echocardiogram has not been ordered, I would like to obtain one to fully assess her left ventricular size, shape and function. In light of her lymphedema, this is usually resistant to diuretics and diuretics can sometimes cause more problems. I would also like to start her on Aranesp injections to treat her anemia along with the IV iron. Once again, I would like to thank you for allowing me to participate in the care of this most pleasant and interesting patient. I will be following her closely with you.
--- NOTE | 2016-11-09 14:08 | NUR ---
Social Work: Initial Assessment Data & Assessment: See Initial Assessment. EMR reviewed. Patient is a 65 y/o female that admitted for Hyponatremia severe anemia. SW met with patient at bedside to complete initial assessment. Patient confirmed that her NOK/DPOA is her sister Marylin Ng [phone]. SW requested a copy of patient's Adv Directive/ DPOA. Patient's PCP is Dr. Brittany Leyva. Patient insurance is [employer] and [facility]. Patient has no VA or LTC benefits. Patient lives at home alone with [facility] caregiver. Patient does not drive. Patient has had [facility] in the past and would like [facility] if it is needed at discharge. SW will fax patient clinical to [facility]. Patient states that she has been to many SNFs in the past. SW will continue to follow patient to rule out HH. Patient has O2 in the hospital but does not have O2 at home. Respiratory and SW will follow patient to rule out if home O2 is needed. SW will continue to follow patient throughout stay. SW provided phone number and plan on white board in room. Plan: Patient will likely discharge home with [facility] caregiver and SW will follow patient to rul out HH. Patient will transport home via POV. SW will continue to follow. Figueroa Garsia LMSW, ENOC Addendum: 11/09/16 at 1427 by FIGUEROA GARSIA Amended: Links added.
[2016-11-09] MEDS ORDERED: PEG/Electrolytes 4,000 mL Solution PO ONE (15:55)
[2016-11-09] MEDS ORDERED: Lidocaine Topical 5% Patch TOPICAL ONE (18:30)
[2016-11-09] MEDS: Insulin GLARgine 100 Unit/mL Syringe SUBQ SCH (20:11)
--- NOTE | 2016-11-09 21:07 | PCM.PNMED ---
Subjective Date of Service Nov 09, 2016 Exam Vital Signs Vital Sign - Last Date Time Temp Pulse Resp B/P Pulse Ox O2 Delivery O2 Flow Rate FiO2 11/09/16 05:22 36.5 70 16 118/79 89 Nasal Cannula 1.00 Intake and Output 11/08/16 11/08/16 11/09/16 Cumulative From/Thru 15:00 23:00 07:00 11/08/16 09:28 - 11/09/16 06:12 Intake Total 300 ml 2114 ml 2414 ml Output Total 1900 ml 1900 ml Balance 300 ml 214 ml 514 ml Intake Oral 300 ml 300 ml 600 ml IV Total 1481 ml 1481 ml Packed Cells 333 ml 333 ml Output Urine Total 1900 ml 1900 ml # Bowel Movements 0 0 Exam General: alert and oriented x3, in no distress at the time my evaluation. Neck negative for jugular venous distention. Lungs : diffuse rhonchi throughout both lung reynolds and end-expiratory wheezes throughout. Heart: Distant regular. Abdomen soft, nondistended Extremities: Severe edema IVs and Medications IV Fluids None Medications Reviewed: Medications were reviewed in detail Lab and Diagnostics Laboratory Tests 11/08/16 10:47: Hemoglobin A1c 7.7, Total Bilirubin 0.6, Aspartate Amino Transf (AST/SGOT) 28, Alanine Aminotransferase (ALT/SGPT) 18, Alkaline Phosphatase 111, Total Protein 7.5 11/08/16 17:35: Osmolality 267, Uric Acid 11.2, Phosphorus Level 4.4, Magnesium Level 2.0, Iron Level 14, Total Iron Binding Capacity 432, Percent Iron Saturation 3, Unsaturated Iron Binding 417.9, Ferritin 50, Pro-B-Type Natriuretic Peptide 6978 , Vitamin B12 Level >1999, Folate > 19.9, Thyroid Stimulating Hormone (TSH) 2.390, Cortisol 17.2 11/09/16 09:25: Potassium Level 4.4, Chloride Level 86, Carbon Dioxide Level 22, Blood Urea Nitrogen 35, Creatinine 1.57, Estimat Glomerular Filtration Rate 48, Glucose Level 196, Calcium Level 8.7 11/09/16 17:40: Sodium Level 126 Laboratory Tests Test Range/Units 11/08/16 10:47 11/08/16 17:35 11/09/16 09:25 11/09/16 17:40 Hemoglobin A1c 4.8-5.6 % 7.7 Total Bilirubin 0.0-1.2 mg/dL 0.6 Aspartate Amino Transf (AST/SGOT) 0-50 U/L 28 Alanine Aminotransferase (ALT/SGPT) 0-32 U/L 18 Alkaline Phosphatase 25-165 U/L 111 Total Protein 6.4-8.4 g/dL 7.5 Osmolality 275-300 267 Uric Acid 2.6-7.2 mg/dL 11.2 Phosphorus Level 2.5-4.9 mg/dL 4.4 Magnesium Level 1.6-2.6 mg/dL 2.0 Iron Level 35-150 ug/dL 14 Total Iron Binding Capacity 250-450 ug/dL 432 Percent Iron Saturation 15-50 %sat 3 Unsaturated Iron Binding ug/dL 417.9 Ferritin 13-150 ng/mL 50 Pro-B-Type Natriuretic Peptide 0-287 pg/mL 6978 Vitamin B12 Level 211-946 pg/mL >1999 Folate >3.0 ng/mL > 19.9 Thyroid Stimulating Hormone (TSH) 0.450-4.500 uIU/mL 2.390 Cortisol . ug/dL 17.2 Potassium Level 3.5-5.2 mEq/L 4.4 Chloride Level 97-108 mEq/L 86 Carbon Dioxide Level 18-29 mmol/L 22 Blood Urea Nitrogen 8-27 mg/dL 35 Creatinine 0.57-1.00 mg/dL 1.57 Estimat Glomerular Filtration Rate >59 mL/min 48 Glucose Level 60-99 mg/dL 196 Calcium Level 8.5-10.1 mg/dL 8.7 Sodium Level 134-144 mEq/L 126 CBC Test 11/08/16 17:35 11/09/16 05:02 11/09/16 17:40 Reticulocyte Count,Calculated 10.1% (0.6-2.6) White Blood Count 9.7th/mm3 (3.8-10.1) Red Blood Count 2.55mil/mm3 (3.90-5.20) Mean Corpuscular Volume 89.8fL (81-100) Mean Corpuscular Hemoglobin 29.4pg (27.0-35.0) Mean Corpuscular Hemoglobin Concent 32.8% (32.0-37.0) Red Cell Distribution Width 15.2% (12.3-15.4) Platelet Count 260bil/L (150-400) Neutrophils (%) (Auto) 72.0% (40-74) Lymphocytes (%) (Auto) 11.8% (14-46) Monocytes (%) (Auto) 13.9% (4-12) Eosinophils (%) (Auto) 1.1% (0-5) Basophils (%) (Auto) 0.3% (0-3) Hemoglobin 7.8g/dL (12.0-15.6) Hematocrit 24.7% (35.0-46.0) CMP Test 11/08/16 10:47 11/08/16 17:35 11/09/16 09:25 11/09/16 17:40 Hemoglobin A1c 7.7% Total Bilirubin 0.6mg/dL Aspartate Amino Transf (AST/SGOT) 28U/L Alanine Aminotransferase (ALT/SGPT) 18U/L Alkaline Phosphatase 111U/L Total Protein 7.5g/dL Osmolality 267 Uric Acid 11.2mg/dL Phosphorus Level 4.4mg/dL Magnesium Level 2.0mg/dL Iron Level 14ug/dL Total Iron Binding Capacity 432ug/dL Percent Iron Saturation 3%sat Unsaturated Iron Binding 417.9ug/dL Ferritin 50ng/mL Pro-B-Type Natriuretic Peptide 6978pg/mL Vitamin B12 Level >1999pg/mL Folate > 19.9ng/mL Thyroid Stimulating Hormone (TSH) 2.390uIU/mL Cortisol 17.2ug/dL Potassium Level 4.4mEq/L Chloride Level 86mEq/L Carbon Dioxide Level 22mmol/L Blood Urea Nitrogen 35mg/dL Creatinine 1.57mg/dL Estimat Glomerular Filtration Rate 48mL/min Glucose Level 196mg/dL Calcium Level 8.7mg/dL Sodium Level 126mEq/L Laboratory Tests Test 11/09/16 00:00 11/09/16 01:36 11/09/16 05:02 11/09/16 09:25 Urine Random Creatinine 37mg/dL (15-278) Hemoglobin 7.6g/dL (12.0-15.6) 7.5g/dL (12.0-15.6) 7.5g/dL (12.0-15.6) Hematocrit 23.7% (35.0-46.0) 22.9% (35.0-46.0) 23.3% (35.0-46.0) Sodium Level 121mEq/L (134-144) 122mEq/L (134-144) Potassium Level 4.6mEq/L (3.5-5.2) 4.4mEq/L (3.5-5.2) Chloride Level 82mEq/L (97-108) 86mEq/L (97-108) Carbon Dioxide Level 27mmol/L (18-29) 22mmol/L (18-29) Blood Urea Nitrogen 42mg/dL (8-27) 35mg/dL (8-27) Creatinine 1.67mg/dL (0.57-1.00) 1.57mg/dL (0.57-1.00) Estimat Glomerular Filtration Rate 44mL/min (>59) 48mL/min (>59) Glucose Level 208mg/dL (60-99) 196mg/dL (60-99) Calcium Level 8.3mg/dL (8.5-10.1) 8.7mg/dL (8.5-10.1) White Blood Count 9.7th/mm3 (3.8-10.1) Red Blood Count 2.55mil/mm3 (3.90-5.20) Mean Corpuscular Volume 89.8fL (81-100) Mean Corpuscular Hemoglobin 29.4pg (27.0-35.0) Mean Corpuscular Hemoglobin Concent 32.8% (32.0-37.0) Red Cell Distribution Width 15.2% (12.3-15.4) Platelet Count 260bil/L (150-400) Neutrophils (%) (Auto) 72.0% (40-74) Lymphocytes (%) (Auto) 11.8% (14-46) Monocytes (%) (Auto) 13.9% (4-12) Eosinophils (%) (Auto) 1.1% (0-5) Basophils (%) (Auto) 0.3% (0-3) Test 11/09/16 17:40 Hemoglobin 7.8g/dL (12.0-15.6) Hematocrit 24.7% (35.0-46.0) Sodium Level 126mEq/L (134-144) Result Diagram: 11/09/16 0502 11/09/16 0136 X-Rays, CTs and MRIs [facility] Diagnostic [place] [address] Patient Name: DANNIELLE GUIDRY MR#: [id number] [place] [facility] [place] Order[place] Phys: Ciarra Rock DO Date of Service: 11/08/16 1725 PROCEDURE: US RENAL SONOGRAM INDICATIONS: acute renal failure TECHNIQUE: Real-time scanning was performed of the kidneys and bladder, with image documentation. COMPARISON: None. FINDINGS: Kidneys: Kidneys are normal in size. Right kidney measures 11.6 cm long; left kidney measures 10.1 cm long. Right renal cortical thickness is 1.2 cm; left renal cortical thickness is 1.0 cm. Renal cortical echotexture is normal. No hydronephrosis or nephrolithiasis. No suspicious solid mass lesions. Bladder: Pre-void bladder volume is 275 mL. Post-void residual is 109 mL. Pre -void images demonstrate no intraluminal masses or stones. On pre-void images, neither ureteral jets are noted with color Doppler interrogation. (Of note, ureteral jets may not be detectable in up to 25% of cases due to insufficient differences in specific gravity between ureteral and bladder urine). Miscellaneous: No free pelvic fluid. IMPRESSION: No hydronephrosis or nephrolithiasis found over the kidneys bilaterally but there is a moderate post void residual of 109 cc in the setting of the prevoid bladder volume of 275 cc. No bladder calculus found. Dictated by: Toi Bragg M.D. on 11/09/2016 at 11:41 Approved by: Toi Bragg M.D. on 11/09/2016 at 11:42 [facility] Diagnostic [place] [address] Patient Name: DANNIELLE GUIDRY MR#: [id number] [place] [facility] [place] Ordering Phys: Ciarra Rock DO Date of Service: 11/08/16 1924 PROCEDURE: X-RAY CHEST ONE VIEW ([id number]) INDICATIONS: elevated BNP, check for CHF TECHNIQUE: One view of the chest was acquired. COMPARISON: [facility], CR, XR CHEST 1VW, 04/28/2015, 4:12. FINDINGS: Surgical changes and devices: None. Lungs and pleura: No pleural effusions or pneumothorax. Lungs are clear. Mediastinum: Mediastinal contours appear normal. Heart size is enlarged. Bones and chest wall: No suspicious bony lesions. Overlying soft tissues appear unremarkable. IMPRESSION: No acute process. Cardiomegaly. Dictated by: Rafael Cisse M.D. on 11/09/2016 at 8:53 Approved by: Rafael Cisse M.D. 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 She also appears to be in acute renal failure. Acute assessments Assessment #1 acute kidney injury: Likely prerenal from aggressive diuresis -- Creatinine of 1.84, from her previous admission she did have this level creatinine before, unclear what exactly her baseline is as she did improve to 1.0 at the time of discharge back in June 2016 -- Elevated uric acid as indicated above diuresis using diuretics -- This appears to be prerenal based on FE urea tests -- Repeat kidney function labs: Repeat labs on the floor showed sodium equals 113, currently 126 -- Renal ultrasound showed no acute findings -- magnesium phosphorus WNL, uric acid is elevated, urine osm are >100, serum osm<280, urine sodium is 17, TSH, cortisol are elavted, Pro BNP elevated > 6000 -- Patient is initially given IV fluids at normal saline running at 100 mL per hour after the blood draw. -- Consulted nephrology, Dr. wright is aware we appreciate the recommendations ( which include 500 mL bolus now, repeat renal panel later in the night) -- Plan to contact Dr. Leyva for some of the records -- Plan to obtain her echo results to understand her ejection fraction -- Hold all nephrotoxic medications Assessment #2 hyponatremia: Likely from aggressive diuresis and volume depletion ---agnesium phosphorus WNL, uric acid is elevated, urine osm are >100, serum osm <280, urine sodium is 17, TSH, cortisol are elavted, Pro BNP elevated > 6000 -- Follow-ups sodium upon arrival to floor is 113, now 126 -- Nephrology is consulted, there recommendations are appreciated -- From analyzng the data, it appears that patient has hypovolemia, including EABV depletion state, ie CHF. Assessment #2 anemia likely due to blood loss likely secondary to AV malformation based on her history -- Type and screen, crossmatch one unit of blood ( we initially crossmatch [address] wright recommends starting with 1 this patient has a history of CHF) -- Iron panel, ferritin, TIBC, folate, B12, reticulocyte count were ordered -- We will consult GI: has seen the patient and plans to do a colonoscopy tomorrow -- Keep patient nothing by mouth overnight for a possible colonoscopy tomorrow -- Continue to monitor H&H -- Currently stable at 7.7 Assessment #3 hypotension -- Stable, continue to hold antihypertensives Chronic assessments Assessment #1 diabetes mellitus -- Plan on giving patient's Lantus 20 units daily at bedtime plus low sliding scale+ 5 units TIDWM -- Nothing by mouth after midnight, diabetic diet prior to that -- Hold glipizide Assessment #2 hypertension: --Currently holding her medications, diuretics -- Fluids as above -- Patient is currently stable -- Hold metoprolol, hold hydralazine Assessment #3 congestive heart failure of unknown type -- Holding diuresis as above -- Hold metoprolol -- Echo is ordered today by nephrology result is pending -- We will consider cardiology consult tomorrow Assessment #4 hypothyroidism -- Continue levothyroxine Assessment #5 CAD -- EKG, baseline chest x-ray -- Telemonitoring DVT prophylaxis: We will hold chemical DVT prophylaxis due to bleeding risk CODE STATUS: Unable to discuss with patient today, will discuss with her and sister tomorrow Alternate decision-maker: Sr. Marylin Alcaraz, 36 0-3 9 1-2 272 Pain Evaluation: Adequate Pain Control VTE Prophylaxis: SCDs, MAK Rolle Resuscitation Status: CPR: Attempt Resuscitation Ciarra Rock DO Nov 09, 2016 07:48
[2016-11-10] VITALS (17 sets, daily range): BP systolic 107–127; BP diastolic 57–79; PULSE 76–128; RESP 16–20; O2SAT 91–99
--- NOTE | 2016-11-10 02:51 | CONS ---
[address] [address] CONSULTATION REPORT PATIENT: DANNIELLE GUIDRY : 1950 MR#: [id number] ADMIT: 11/08/2016 JOB ID: [id number] DATE OF SERVICE: 11/09/2016 REQUESTING PROVIDER: Ciarra Rock DO. REASON FOR CONSULTATION: Anemia and GI bleeding. HISTORY OF PRESENT ILLNESS: This is a 65-year-old female with numerous medical comorbidities, presenting to the emergency department was anemia, hyponatremia and acute renal insufficiency. There is concern that she has had a GI bleed. The patient reports that her stools are dark but usually actually firm and on the constipated side. She is taking oral iron. She additionally has seen some red blood per rectum. She does not have any sustained ongoing bleeding. When she checked into the emergency department yesterday hemoglobin was 7.7. On recheck it was 6.8. She was transfused 1 unit of packed RBCs overnight with a slight elevation in H and H thereafter. The patient on occasion gets lower abdominal cramping type pains. Again, has a tendency toward constipation. No nausea, vomiting. No significant reflux. She occasionally has some dysphagia to pills. ALLERGIES: 1. PENICILLIN. 2. ERYTHROMYCIN. 3. NAPROSYN. 4. TETRACYCLINE. 5. AZITHROMYCIN. 6. VERAPAMIL. MEDICATIONS: 1. Loratadine. 2. Albuterol. 3. Cyclobenzaprine. 4. Atrovent. 5. Metoprolol. 6. Nitroglycerin as needed. 7. Simvastatin. 8. Tylenol. 9. Aspirin. 10. Butalbital/acetaminophen/caffeine. 11. Citalopram. 12. Ibuprofen p.r.n. 13. Tramadol. 14. Hydroxyzine. 15. Calcium carbonate. 16. Metolazone. 17. Potassium chloride. 18. Torsemide. 19. Fluticasone. 20. Colace p.r.n. 21. Imodium. 22. Magnesium oxide. 23. Omeprazole 20 mg daily. 24. MiraLAX once daily. 25. Ranitidine 150 mg twice daily. 26. Senna p.r.n. 27. Simethicone p.r.n. 28. Glipizide. 29. Insulin glargine. 30. Levothyroxine. 31. Clotrimazole topical. 32. Hydrocortisone topical. 33. Vitamin C. 34. Vitamin D3. 35. Vitamin B12. 36. Multivitamin. 37. Allopurinol. 38. Glucosamine chondroitin. 39. B12. 40. Ferrous gluconate. PAST MEDICAL HISTORY: 1. Mitral valve repair. 2. Left knee surgery. 3. Colonic diverticulosis. 4. Colon polyps. 5. AVM. 6. Prior GI workup for anemia. 7. Longstanding mental health challenges. 8. Type 2 diabetes. 9. Hypertension. 10. Coronary artery disease. 11. Congestive heart failure. 12. Hyperlipidemia. 13. Pleural effusions. 14. Hypertensive nephrosclerosis. 15. The patient did have a small bowel PillCam in October 2014 which demonstrated scattered telangiectasias, some with active mild oozing of blood (back at that time she was recommended to continue iron supplementation and a bowel regimen to manage constipation. If the anemia recurred, then referral to [facility] for double balloon endoscopy was to be considered). FAMILY HISTORY: Noncontributory. SOCIAL HISTORY: Her sister, Reinaldo, was at the bedside, along with a friend, and was helpful in providing some collateral history. She is a smoker. REVIEW OF SYSTEMS: Here in the hospital she has not had any fever. She has had some leg swelling bilaterally. There were no reported cardiopulmonary symptoms. According to the notes, she was a little dizzy and had some nausea that has since resolved. The patient does demonstrate iron deficiency by blood work from yesterday. PHYSICAL EXAMINATION: Blood pressure 110/67, pulse 79, breathing 18, temperature 36.4; 98% on 2 L. The patient was alert, oriented, quite conversational. She had a friend and her sister at the bedside. Lungs: Clear bilaterally. Heart: Regular. I did not appreciate any tenderness at this time. She had SCDs in place bilaterally but there was some edema in her lower extremities bilaterally. She was able to stand up for me at the bedside. She was in no distress. LABORATORIES: Hemoglobin since transfusion is stable at 7.8. White count is normal at 9.7, platelets are 260. Sodium was a little low on admission at 116. It has since been corrected to 122 this morning. Creatinine is down to 1.57. Her BUN is 35, potassium 4.4, chloride 86, glucose 196, calcium 8.7. IMAGING: A chest x-ray showed no acute process, but there was cardiomegaly. She had a retroperitoneal ultrasound which did not reveal the obvious source for her renal failure, but there was described a moderate postvoid residual of 109 cc in the setting of a prevoid bladder volume of 275 cc. ASSESSMENT AND PLAN: This is a 65-year-old female admitted with impressive hyponatremia and anemia with a report of dark stool (? iron) and some intermittent red blood per rectum. She has additionally demonstrated acute renal failure. The unifying diagnosis at the moment is not identified. From a gastrointestinal standpoint, she does not appear to have any ongoing active hemorrhage, but certainly presented with an impressive anemia and symptoms of potentially both upper and lower GI blood loss. She has a history of small bowel telangiectasia, and ultimately may need to be considered for a double balloon small bowel enteroscopy down at [facility]. I agree with the blood transfusion and slow correction of her sodium, and certainly would defer to the Nephrology service with respect to renal function treatment and prognosis. It has been almost four years since her last upper endoscopy, which was considered normal in January 2013. It has been a little over three years since her last colonoscopy. I think before referral down to [facility] is accomplished, an updated esophagogastroduodenoscopy and colonoscopy would be appropriate. We discussed this at the bedside. The patient is willing to proceed and a bowel prep has been ordered for this evening to be finished in the morning, and n.p.o. after 11 a.m. for an anesthesia based EGD and colonoscopy tomorrow afternoon around two or so. It looks like she was given a proton pump inhibitor today, along with an iron infusion. I do not see where the PPI has been continued. In the face of her nonsteroidal anti-inflammatory use, I think it certainly would be reasonable to continue this while she is in the hospital.
[2016-11-10] MEDS: Albuterol-Ipratropium 3 mL Inhalation Solution NEB SCH ×4 (03:11→20:31)
--- NOTE | 2016-11-10 03:18 | NUR ---
DIET Per orders, pt on clear liquids until 11/10/16 at 1000 for endoscopy. Pt finished 2L of GoLytely 11/09 evening, understands needs to finish the other 2L by 1000. Nursing to encourage GoLytely when pt is awake or using BSC. Pt compliant and understanding. Per report, am meds okay to be given but do not give am lispro, ASA, or senna. Pt had formed BM 11/09 evening, no evidence of flavia blood, guaiac sent. Hourly rounding.
[2016-11-10 05:31] LABS: BASOPHILS % (AUTO) 0.3 % (0-3); EOSINOPHILS % (AUTO) 0.9 % (0-5); MONOCYTES % (AUTO) 14.4 % (4-12); Mean Corpuscular Hemoglobin 28.9 pg (27.0-35.0); Mean Corpuscular Volume 92.1 fL (81-100); NEUTROPHILS % (AUTO) 75.6 % (40-74); Platelet Count 243 bil/L (150-400)
[2016-11-10] MEDS ORDERED: Glycopyrrolate 0.2 MG/ML 1mL Inj ONE (06:04)
[2016-11-10] MEDS ORDERED: Ketamine 10 mg/mL 20 mL Inj ONE (06:04)
[2016-11-10] MEDS ORDERED: Propofol 10,000 mCg/mL 20 mL Inj ONE (06:04)
[2016-11-10] MEDS: Polyethylene Glycol (PEG) 17 Gm Powder PO SCH (08:30)
[2016-11-10] MEDS: Fluticasone 0.05% 15 Spray/2 Gm 16 Gm Nasal Spray NASAL SCH ×2 (09:09→20:30)
[2016-11-10] MEDS: Calcium Carbonate (Oyster Shell) 500 mg Tablet PO SCH (09:10)
[2016-11-10] MEDS: Pantoprazole 4 mg/mL 10 mL Inj IVPUSH SCH (09:12)
[2016-11-10] MEDS: Insulin LISPRO 300 Unit/3 mL Inj SUBQ SCH ×3 (09:19→22:00)
[2016-11-10] MEDS ORDERED: Lidocaine Topical 5% Patch TOPICAL SCH (10:49)
--- NOTE | 2016-11-10 12:39 | DRSVH ---
PROCEDURE: X-RAY CHEST, TWO VIEWS ([id number]) INDICATIONS: dyspnea TECHNIQUE: 2 views of the chest were acquired. COMPARISON: [facility], CR, XR CHEST 1VW, 11/08/2016, 19:42. [facility], CR, XR CHEST 2VW, 04/25/2015, 19:08. FINDINGS: Surgical changes and devices: 2 metallic surgical devices overlie the general region of the tricuspid valve, present on multiple prior chest plain films and presumably related to some form of prior card iac surgery.. Lungs and pleura: No pleural effusions or pneumothorax. Lungs are clear. Mediastinum: Mediastinal contours are normal. Heart size is normal. Bones and chest wall: No suspicious bony abnormalities. Soft tissues appear unremarkable. IMPRESSION: Some form of prior cardiac surgery has been performed, with 2 linear metallic devices ove rlying the general region of the tricuspid bowel. There is a small degree of interstitial prominence but no definite acute CHF the heart size is within normal limits. Dictated by: Toi Bragg M.D. on 11/10/2016 at 12:37 Approved by: Toi Bragg M.D. on 11/10/2016 at 12:38
--- NOTE | 2016-11-10 13:59 | PCM.HPANE ---
Patient Data Date of Service: Nov 10, 2016 Surgeon Admitting Provider:Ciarra Rock DO Attending Provider:Ciarra Rock DO Primary Care Physician:Brittany Leyva MD Other Provider: Reason for Visit Hyponatremia Severe Anemia Ht/WT & BMI Height (Feet): 5 Height (Inches): 7.00 Weight (Kilograms): 101.400 Body Mass Index 35.00 Allergies Coded Allergies: Penicillins (Verified Allergy, Severe, 11/08/16) azithromycin (Verified Allergy, Severe, 11/08/16) Tetracyclines (Verified Allergy, Unknown, 11/08/16) verapamil (Verified Allergy, Unknown, 04/25/15) Uncoded Allergies: ERYTHROMYCINS (Allergy, Severe, 11/08/16) NAPROSEN (Adverse Reaction, Severe, 11/08/16) Past Anesthesia History Anesthesia History: Denies:: Abnormal Airway, Anesthesia Reactions, Difficult Intubation, Fam Anesthesia Reaction, Fam Malignant Hypertherm, Malignant Hyperthermia Diabetes History Hx Diabetes?: Yes Current Bedside Blood Glucose: 155 MRSA MRSA: No Medications Blood Thinner: Aspirin Reported Medications Ascorbic Acid (Vitamin C)125 Mg Tab.klvk188 Mg PO DAILY 11/08/16 Omeprazole 20 Mg Capsule.dr20 Mg PO DAILY 11/08/16 Allopurinol 100 Mg Gxdvlr314 Mg PO BID 11/08/16 Acetaminophen 500 Mg Pjmmia512 Mg PO TID PRN For Pain 11/08/16 Magnesium Oxide (Magnesium)500 Mg Gepdghl037 Mg PO DAILY 11/08/16 Hydrocortisone (Anusol-Hc)30 Gm Cream..g.1 Applic RC DAILY PRN PRN 11/08/16 Insulin Glargine (Lantus U100 Insulin Vial)100 Unit/Ml Vial20 Units SUBQ HS 11/08/16 Ibuprofen 600 Mg Salgxx254 Mg PO BID PRN For Pain 11/08/16 Fluticasone Propionate (Fluticasone Propionate Nasal)16 Gm [place].susp1 [place] NS BID 11/08/16 Albuterol HFA (Proair HFA)8.5 Gm Hfa.aer.ad2 Puffs INHALATION Q4H PRN For Shortness of Breath 11/08/16 Nitroglycerin SL (Nitrostat)0.3 Mg Tab.subl0.3 Mg PO Q5MIN PRN For Chest Pain 11/08/16 Ranitidine 150 Mg Baobhkh926 Mg PO BID 11/08/16 Simvastatin 40 Mg Pcvlof36 Mg PO HS 11/08/16 Cyclobenzaprine 10 Mg Owybek72 Mg PO BID PRN Spasm 11/08/16 Clotrimazole 2% (Gyne-Lotrimin 3 2%)21 Gm Cream.appl1 Applic TOPICAL BID PRN PRN 11/08/16 Simethicone (Gas-X)125 Mg Evcfrzz327 Mg PO TIDWM PRN For GI Cramps 11/08/16 Calcium Carbonate (Calci-Mix)500 Mg Eudeyqo319 Mg PO DAILY 11/08/16 Butalbital/Acetamin/Caff 50-300-40 mg (Fioricet 50-300-40 mg)1 Each Capsule1 Each PO Q4H PRN migraines 11/08/16 Albuterol Neb Soln 2.5 Mg/3 Ml Vial.neb2.5 Mg INHALATION For Shortness of Breath 11/08/16 Ipratropium/Albuterol Sulfate (Iprat-Albut 0.5-3(2.5) mg/3 mL Inhalant Soln)3 Ml Ampul.neb3 Ml IH Q4 PRN For Shortness of Breath 11/08/16 Potassium Chloride ER (Klor-Con M20)20 Meq Jdpohk14 Meq PO QID Ref 0 09/13/15 Loperamide 2 Mg Capsule2 Mg PO PRN Loose stool 09/13/15 hydrOXYzine Hcl (HydrOXYzine Hcl)25 Mg Lhnvux93 Mg PO TID PRN For Itching Ref 0 09/13/15 Tramadol 50 Mg Sqaezu74 Mg PO BID PRN For Pain 09/13/15 Cholecalciferol (Vitamin D3) (Vitamin D3)1,000 Unit Tab.chew2,000 Unit PO DAILY 09/13/15 Polyethylene Glycol 3350 (Miralax)17 Gm Powd.pack17 Gm PO DAILY 09/13/15 Cyanocobalamin (Vitamin B-12) (Vitamin B-12)100 Mcg Nyheno005 Mcg PO DAILY 09/13/15 Glucosa Ferguson 2Kcl/Chondroitin Ferguson (Glucosamine Chondroitin Caplet)1 Each Tablet1 Each PO DAILY 09/13/15 Loratadine (Claritin)10 Mg Uztahof14 Mg PO DAILY 04/25/15 Multivitamin (Multivitamins)1 Each Capsule1 Each PO DAILY 04/25/15 Metolazone 2.5 Mg Tablet2.5 Mg PO 3x/week 04/25/15 Torsemide (Demadex)20 Mg Kevcdv56 Mg PO BID 30 Days Ref 0 04/25/15 Sennosides (Senna)8.6 Mg Tablet8.6 Mg PO DAILY PRN For Constipation 04/25/15 Docusate Sodium (Colace)100 Mg Bahimoy904 Mg PO BID 04/25/15 Aspirin 81 Mg Nloqti42 Mg PO DAILY Ref 0 04/25/15 Citalopram 10 Mg Ibdcdv71 Mg PO AM 30 Days Ref 0 11/20/14 Metoprolol Succinate ER 50 Mg Tab.er.24h50 Mg PO AM 30 Days Ref 0 11/20/14 Glipizide 10 Mg Fcqrtn62 Mg PO BID 30 Days 11/20/14 Levothyroxine 125 Mcg Iroxdk731 Mcg PO DAILY For Thyroid Replacement #30 TABLET Ref 0 11/20/14 Discontinued Reported Medications Simvastatin 80 Mg Ajcsmo30 Mg PO HS 30 Days Ref 0 09/13/15 [Gas Relief] No Conflict Iychs030 Mg PO PRN PRN 09/13/15 Ferrous Gluconate 325 Mg Yqotbi204 Mg PO DAILY Ref 0 04/25/15 Cyclobenzaprine 5 Mg Tablet5 Mg PO HS Ref 0 04/25/15 Nitroglycerin SL (Nitrostat)0.4 Mg Tab.subl0.4 Mg SL Q5MIN PRN For Chest Pain # 1 BOTTLE 11/20/14 Cyanocobalamin (Vitamin B12)1,000 Mcg Tablet1,000 Mcg PO NOON 11/20/[address] 40 Mg Tablet.dr40 Mg PO BID 30 Days Ref 0 11/20/14 History History of ENT Problems?: Yes HEENT History: Positive for:: Cataracts (Both eyes, had surgery) Dysphagia (soft food things easy to swallow) Denies:: Abnormal Airway Difficult Intubation Hearing Problem Sinus Problem Hx of Heart Problems?: Yes Cardiovascular History: Positive for:: Atrial Fibrillation Chest Pain Congestive Heart Failure Coronary Artery Disease Edema Hypertension Denies:: AICD Cardiac Surgery Heart Murmur Irregular Heartbeat Pacemaker Thrombophlebitis Valvular Heart Disease Hx of Respiratory Problem?: Yes Respiratory History: Positive for:: COPD Dyspnea Pneumonia (ASPIRATION PNEUMONIA ) Denies:: Asthma Chest Surgery Cough Emphysema Hemoptysis Tuberculosis Hx Neurologic Problems?: Yes Neurological History: Positive for:: Dementia Dizziness Headaches Denies:: Alzheimer's Disease CVA Parkinson's Disease Seizures TIA Hx of GI Problems?: Yes Gastrointestinal History: Positive for:: Diverticulitis Gastroesphageal Reflux Rectal Bleeding (Hemorrhoids) Denies:: Cirrhosis Gastrointestinal Bleeding Heartburn Hepatitis Hiatal Hernia Liver Disease Hx of Problems?: No Female Hx: Denies:: Currently Endometriosis Pelvic Inflammatory Problems with Breasts? Hx Musculoskeletal Problems?: Yes Musculoskeletal History: Denies:: Back Injury Joint Replacement Musculoskeletal Trauma Hx of Psycho/Social Problems?: Yes Psycho Social History: Positive for:: Anxiety Hx Depression Denies:: Bipolar Disorder Suicide Attempt Hx Surgeries?: Yes (L knee repair, cataract repair x2, mitral valve repl) Hx Any Other Health Problems?: Yes Other History: Positive for:: Endocrine Disease Hospitalization (see below.) Thyroid Disease (Hypothyroid) Denies:: Cancer History Blood Transfusions: Positive for:: Accept Blood Products? Blood Transfusions Denies:: Blood Transfuse Reaction Hx Diabetes: YesBedside Blood Glucose: 155 Hx Alcohol Use: NoHx Substance Use: No Smoking Status: Current Every Day Smoker Have You Smoked inLast 12 mo: Yes Stop/Bang Treated for Sleep Apnea?: No Do You Have a CPAP Machine?: No S-Snoring: Do You Snore Loudly: No T-Tired: feel tired, fatigued: Yes O-Obsered: Observed not breath: No P-Blood Pressure: treated: Yes B- Body Mass Index > 35 kg/m2: No A- Age over 50: Yes N- Neck Large Circumference: No G- Gender Male: No SIDDHARTHA Total Score: 3 SIDDHARTHA Risk Assessment: High Risk, =/>3 Yes SIDDHARTHA Category 2: Yes Risk Assessment Category Category 1A: Patient has history of documented sleep apnea, and HAS NOT received any narcotic, sedative or anesthesia administration during this stay. Category 1B: Patient has history of documented sleep apnea, and HAS received any narcotic , sedative or anesthesia administration during this stay Category 2: Patient has SUSPECTED Obstructive Sleep Apnea, and HAS received any narcotic , sedative or anesthesia administration during this stay. Category 3: Patient has SUSPECTED Obstructive Sleep Apnea and HAS NOT received narcotic, sedative or anesthesia administration during this stay. Category 4: Outpatient in Procedural Areas with known sleep apnea or who screen positive for High Risk via the STOP/BANG questionnaire. Exam Exam Vital Signs Vital Signs Date Time Temp Pulse Resp B/P Pulse Ox O2 Delivery O2 Flow Rate FiO2 11/10/16 09:29 36.4 96 20 127/79 94 Room Air 11/10/16 09:00 76 18 96 Room Air 11/10/16 08:00 90 11/10/16 06:26 86 General Appearance: Alert, Oriented X3, Cooperative, No Acute Distress HEENT/AIRWAY: MP 3, Neck Movement (FROM), Mouth Opening (<3), Other (TMD<3) Lungs: Diminished, Coarse Heart: Exam Unremarkable, Regular Rate/Rhythm, Normal S1, Normal S2, No Murmurs /Rubs/Gallops Meds/Labs/Diagnostics Admission Meds Current Medications Polyethylene Glycol/ Electrolytes (Colyte) 4,000 ml OT ONCE PO Last administered on 11/09/16 17:09; Start 11/09/16 at 15:55; Stop 11/09/16 at 15:56; Status DC Lidocaine (Lidoderm 5% Patch) 1 patch DAILY ONCE TOPICAL Last administered on 11/09/16 20:07; Start 11/09/16 at 18:30; Stop 11/09/16 at 18:34; Status DC Pantoprazole (Protonix Inj) 40 mg DAILYAC IVPUSH Last administered on 11/10/16 09:12; Start 11/10/16 at 07:30 Bedside Blood Glucose: 155 Labs Test 11/08/16 10:00 11/08/16 10:47 11/08/16 11:10 11/08/16 17:35 Urine Osmolality 274mOs/kH2O (250-1200) Urine Random Sodium 17mEq/L Urine Urea Nitrogen 239mg/dL (Not Estab.) Hemoglobin A1c 7.7% (4.8-5.6) Urine Color Straw (YELLOW) Urine Appearance Clear (CLEAR,HAZY) Urine pH 6.5 (5.0-8.0) Urine Specific [place] 1.010 (1.003-1.035) Urine Protein Negativemg/dL (NEG,TRACE) Urine Glucose (UA) Negativemg/dL (NEGATIVE) Urine Ketones Negativemg/dL (NEGATIVE) Urine Occult Blood Negative (NEGATIVE) Urine Nitrite Negative (NEGATIVE) Urine Bilirubin Negative (NEGATIVE) Urine Urobilinogen Normalmg/dL (NORMAL) Urine Leukocyte Esterase Negative (NEGATIVE) Urine RBC 0-2/hpf (0-2) Urine WBC 0-5/hpf (0-5) Urine Epithelial Cells Moderate/hpf (NONE-MOD) Urine Crystals None seen (NONE SEEN) Urine Bacteria Few/hpf (NONE-FEW) Urine Hyaline Casts None/lpf (NONE) Urine Granular Casts None seen (NONE SEEN) Urine Waxy Casts None seen (NONE SEEN) Urine Red Blood Cell Casts None seen (NONE SEEN) Urine White Blood Cell Casts None seen (NONE SEEN) Urine Mucus None seen (None Seen) Urine Trichomonas None seen (NONE SEEN) Urine Yeast None (NONE SEEN) Urinalysis Comment None Urine Culture Reflexed Not indicated Reticulocyte Count,Calculated 10.1% (0.6-2.6) Osmolality 267 (275-300) Phosphorus Level 4.4mg/dL (2.5-4.9) Magnesium Level 2.0mg/dL (1.6-2.6) Iron Level 14ug/dL (35-150) Total Iron Binding Capacity 432ug/dL (250-450) Percent Iron Saturation 3%sat (15-50) Unsaturated Iron Binding 417.9ug/dL Ferritin 50ng/mL (13-150) Pro-B-Type Natriuretic Peptide 6978pg/mL (0-287) Vitamin B12 Level >1999pg/mL (211-946) Folate > 19.9ng/mL (>3.0) Thyroid Stimulating Hormone (TSH) 2.390uIU/mL (0.450-4.500) Cortisol 17.2ug/dL (.) Test 11/09/16 00:00 11/09/16 09:25 11/10/16 05:17 Urine Random Creatinine 37mg/dL (15-278) White Blood Count 9.1th/mm3 (3.8-10.1) Red Blood Count 2.77mil/mm3 (3.90-5.20) Hemoglobin 8.0g/dL (12.0-15.6) Hematocrit 25.5% (35.0-46.0) Mean Corpuscular Volume 92.1fL (81-100) Mean Corpuscular Hemoglobin 28.9pg (27.0-35.0) Mean Corpuscular Hemoglobin Concent 31.4% (32.0-37.0) Red Cell Distribution Width 15.9% (12.3-15.4) Platelet Count 243bil/L (150-400) Neutrophils (%) (Auto) 75.6% (40-74) Lymphocytes (%) (Auto) 8.1% (14-46) Monocytes (%) (Auto) 14.4% (4-12) Eosinophils (%) (Auto) 0.9% (0-5) Basophils (%) (Auto) 0.3% (0-3) Sodium Level 134mEq/L (134-144) Potassium Level 3.6mEq/L (3.5-5.2) Chloride Level 91mEq/L (97-108) Carbon Dioxide Level 27mmol/L (18-29) Blood Urea Nitrogen 21mg/dL (8-27) Creatinine 1.11mg/dL (0.57-1.00) Estimat Glomerular Filtration Rate 71mL/min (>59) Glucose Level 155mg/dL (60-99) Uric Acid 9.1mg/dL (2.6-7.2) Calcium Level 9.0mg/dL (8.5-10.1) Total Bilirubin 0.8mg/dL (0.0-1.2) Aspartate Amino Transf (AST/SGOT) 66U/L (0-50) Alanine Aminotransferase (ALT/SGPT) 49U/L (0-32) Alkaline Phosphatase 123U/L (25-165) Total Protein 6.7g/dL (6.4-8.4) Albumin 3.6g/dL (3.4-5.0) Plan Impression Patient chart reviewed, patient interviewed and anesthestic plan with risks, benefits, and alternatives discussed, and informed consent obtained. ASA Physical Status: ASA3 Severe Disease Anesthetic Plan: TIVA Bene/Risks/Altern/Consents: Yes HP Complete Prior to Induction: Yes Rafiq Burgos MD Nov 10, 2016 13:59
[2016-11-10] MEDS ORDERED: Lactated Ringer's 1,000 ML IV ONE ×2 (14:08)
--- NOTE | 2016-11-10 14:36 | PCM.PNNEPH ---
Subjective Date of Service Nov 10, 2016 Subjective The patient's renal function continues to do well. Her sodium has corrected to 134. Blood pressures have been good and her intake and output the last 24 hours for 3540 580 out. Denies any chest pain, shortness of breath, cough or wheezing. Exam Vital Signs Vital Sign - Last Date Time Temp Pulse Resp B/P Pulse Ox O2 Delivery O2 Flow Rate FiO2 11/10/16 14:06 92 18 120/57 96 Room Air 11/10/16 09:29 36.4 11/09/16 18:19 2.00 Intake and Output 11/09/16 11/09/16 11/10/16 Cumulative From/Thru 15:00 23:00 07:00 11/08/16 09:28 - 11/10/16 04:07 Intake Total 514 ml 872 ml 3800 ml Output Total 2600 ml 4500 ml Balance 514 ml -1728 ml -700 ml Intake Oral 872 ml 1472 ml IV Total 514 ml 1995 ml Packed Cells 333 ml Output Urine Total 2600 ml 4500 ml # Bowel Movements 0 0 Exam Neck is supple without adenopathy, thyromegaly, or jugular venous distention. Lungs continue to show some scattered rhonchi but otherwise clear. Heart was regular and rhythmical with a soft systolic murmur. Abdomen soft without any tenderness rebound guarding masses or hepatosplenomegaly. Extremities do not show any evidence of any clubbing cyanosis or edema. Skin turgor is good and there is no evidence of any rashes. Lab and Diagnostics Result Diagram: 11/10/1651611/10/16516 X-Rays, CTs and MRIs [facility] Diagnostic [place] [address] Patient Name: DANNIELLE GUIDRY MR#: [id number] [place] [facility] [place] Phys: Ciarra Rock Date of Service: 11/08/161724 PROCEDURE: US RENAL SONOGRAM INDICATIONS: acute renal failure TECHNIQUE: Real-time scanning was performed of the kidneys and bladder, with image documentation. COMPARISON: None. FINDINGS: Kidneys: Kidneys are normal in size. Right kidney measures 11.6 cm long; left kidney measures 10.1 cm long. Right renal cortical thickness is 1.2 cm; left renal cortical thickness is 1.0 cm. Renal cortical echotexture is normal. No hydronephrosis or nephrolithiasis. No suspicious solid mass lesions. Bladder: Pre-void bladder volume is 275 mL. Post-void residual is 109 mL. Pre -void images demonstrate no intraluminal masses or stones. On pre-void images, neither ureteral jets are noted with color Doppler interrogation. (Of note, ureteral jets may not be detectable in up to 25% of cases due to insufficient differences in specific gravity between ureteral and bladder urine). Miscellaneous: No free pelvic fluid. IMPRESSION: No hydronephrosis or nephrolithiasis found over the kidneys bilaterally but there is a moderate post void residual of 109 cc in the setting of the prevoid bladder volume of 275 cc. No bladder calculus found. Dictated by: Toi Bragg M.D. on 11/09/2016 at 11:41 Approved by: Toi Bragg M.D. on 11/09/2016 at 11:42 [facility] Diagnostic Imaging Department [place], [place] [id number] Patient Name: DANNIELLE GUIDRY MR#: [id number] [place] [facility] [place] [facility] [place]ing Phys: RockCiarra ortega DO Date of Service: 11/08/161923 PROCEDURE: X-RAY CHEST ONE VIEW ([id number]) INDICATIONS: elevated BNP, check for CHF TECHNIQUE: One view of the chest was acquired. COMPARISON: [facility], CR, XR CHEST 1VW, 04/28/2015, 4:12. FINDINGS: Surgical changes and devices: None. Lungs and pleura: No pleural effusions or pneumothorax. Lungs are clear. Mediastinum: Mediastinal contours appear normal. Heart size is enlarged. Bones and chest wall: No suspicious bony lesions. Overlying soft tissues appear unremarkable. IMPRESSION: No acute process. Cardiomegaly. Dictated by: Rafael Cisse M.D. on 11/09/2016 at 8:53 Approved by: Rafael Cisse M.D. on 11/09/2016 at 8:53 None 12-lead ECG None Plan Impression Impression #1 hyponatremia #2 acute kidney injury which is resolved #3 diabetic nephropathy #4 hypertension with hypertensive heart disease and hypertensive nephrosclerosis #5 anemia which appears to be multifactorial. #6 hyperuricemia. Recommendations #1 I would like to start her on allopurinol 100 mg once a day. Lites also hepatitis profile and a urine protein creatinine ratio. Scar Cadet DO Nov 10, 2016 14:36
--- NOTE | 2016-11-10 15:09 | DRSVH ---
[facility] [address] [place] [address] Echocardiogram Report Name: DANNIELLE GUIDRY LStudy Date: 11/10/2016 Height: 67 in Hospital Exam Location: [facility] Weight: 22 4 lb Gender: Female BSA: 2.1 m2 : 1950 Age: 65 yrs BP: 120/72 mmHg Reason For Study: Fluid overload, Congestive Heart Failure Ordering Physician: HOSPITALIST [facility] Performed By: Reuben Benoit Referring Physician: MARIANNE CANO Interpretation Summary 1) Normal left ventricular thickness, size, and systolic function (EF 65- 70%). 2) Flattened septum is consistent with RV pressure/volume overload. 3) Severely dilated right ventricle with moderately reduced function. 4) Mitral clip present on the mitral valve with moderate anteriorly directed mitral regurgitation. 5) Severe inflow mitral gradient present (mean 14mmHg). Heart rate during the echo was in the 90s. 6) Severe tricuspid regurgitation present. 7) Severe pulmonary hypertension present, estimated systolic pulmonary pressure of 89mmHg. 8) Severe biatrial enlargement present with functional bidirectional ASD present. 9) Compared to the Echo done 11/21/2014, transmitral gradient is higher on today's study but this is probably due to increased heart rate on today's study. Procedure: A two-dimensional transthoracic echocardiogram with color flow and Doppler was performed. Parasternal images are fair; apical images are difficult. Definity was not used due to bidirectional shunt. Comparison is made with the echocardiogram of 11/21/14. The heart rate ranged between 90-108 bpm during the study. Left Ventricle: The left ventricle is normal in size. Left ventricular wall thickness is mildly increased. The ejection fraction is estimated to be 65- 70%. Left ventricular systolic function is normal. Flattened septum is consistent with RV pressure/volume overload. Assessment of diastolic parameters suggests a pseudonormalization pattern, consistent with elevated filling pressures. Right Ventricle: The right ventricle is severely dilated. Right ventricular systolic function is moderate to severely reduced. Atria: The left atrium is severely dilated. The right atrium is severely dilated. There is a small ASD that is bidirectional. Mitral Valve: A mitral valve clip is present. The mitral valve mean gradient is 14 mmHg. There is a eccentric jet of moderate MR aimed anteriorly. Aortic Valve: The aortic valve is trileaflet. The aortic valve is slightly calcified. There is no aortic valve stenosis. No aortic regurgitation is present. Tricuspid Valve: The tricuspid valve is not well visualized, but is grossly normal. There is severe tricuspid regurgitation. The right ventricular systolic pressure is estimated at 89 mmHg assuming a right atrial pressure of 8 mm Hg. Pulmonic Valve: The pulmonic valve is not well seen, but is grossly normal. There is no pulmonic valvular regurgitation. Great Vessels: The aortic root is normal size. The dimensions of the ascending aorta are normal. The pulmonary artery is normal size. The IVC is dilated (diameter is greater than 2.1 cm) yet it collapses greater than 50% with a sniff. This suggests a right atrial pressure of 8 mm Hg. Pericardium/ Pleura There is no pericardial effusion. There is no pleural effusion. MMode/2D Measurements & Calculations LVIDd: 4.8 cm RA long axis LVOT diam: 2.0 cm LVIDs: 2.9 cm LA A2 area: 28.2 cm Ao root diam FS: 39.2 % LA A4 area: 28.5 cm RA area IVSd: 1.0 cm LA length (vol) asc Aorta Diam LVPWd: 0.88 cm : 26.1 cm LA vol: 106.6 ml RA vol Ao Arch Diam (Prox LA vol index : 94.9 ml Trans): 2.2 cm RA : 44.7 mm2 IVC diam: 2.3 cm LV griffiths. diameter/BSA LV sys. diameter/BSA TAPSE: 1.1 cm (cm/m^2): 2.3 (cm/m^2): 1.4 Doppler Measurements & Calculations Ao V2 max: 149.3 cm/sec MV E max huber MV E/A: 1.5 TR max huber Ao max P.9 mmHg : 285.4 cm/sec : 451.2 cm/sec Ao mean P.6 mmHg MV A max huber TR max PG LVOT Max Huber : 196.3 cm/sec : 81.4 mmHg : 109.7 cm/sec PA V2 max MVA(VTI): 0.79 cm2 : 133.1 cm/sec ENZO(I,D): 2.5 cm PA mean PG sev ratio: 0.78 : 3.8 mmHg MV V2 mean: 184.0 cm/secAo V2 mean LV V1 max PG PA V2 mean MV mean P.3 mmHg : 101.3 cm/sec : 94.7 cm/sec MV V2 VTI: 60.4 cm Ao V2 VTI: 18.9 cm LV V1 VTI PA pr(Accel) MV dec time: 0.22 sec : 14.9 cm : 49.4 mmHg ENZO(V,D): 2.4 cm2 ENZO indexed to BSA (cm^2/m^2): 1.2 Reading Physician:03:08 PM
--- NOTE | 2016-11-10 15:29 | PCM.PNMED ---
Subjective Date of Service Nov 10, 2016 Subjective Patient is seen and examined. She seems to be improving though she has some swelling in her arms and legs. She states that she drank all the constant contrast in preparation for colonoscopy. She complains of not being able to eat. No other concerns Exam Vital Signs Vital Sign - Last Date Time Temp Pulse Resp B/P Pulse Ox O2 Delivery O2 Flow Rate FiO2 11/10/16 15:10 113 16 110/65 97 Room Air 11/10/16 09:29 36.4 11/09/16 18:19 2.00 Intake and Output 11/09/16 11/09/16 11/10/16 Cumulative From/Thru 15:00 23:00 07:00 11/08/16 09:28 - 11/10/16 04:07 Intake Total 514 ml 872 ml 3800 ml Output Total 2600 ml 4500 ml Balance 514 ml -1728 ml -700 ml Intake Oral 872 ml 1472 ml IV Total 514 ml 1995 ml Packed Cells 333 ml Output Urine Total 2600 ml 4500 ml # Bowel Movements 0 0 Exam Gen.: No acute distress conversing with caregiver ENT: Normocephalic, atraumatic mild proptosis is present Heart: Can hear the mitral valve click, and systolic murmur. regular rate and rhythm Lungs clear to auscultation bilaterally Neck negative for JVD vascular swollen arms and legs Site negative for anxiety neurological: Alert and oriented by 3 IVs and Medications IV Fluids None patient is under fluid restriction of 1500 mL Medications Reviewed: Medications were reviewed in detail Lab and Diagnostics Result Diagram: 11/10/1651611/10/16516 X-Rays, CTs and MRIs [facility] Diagnostic Imaging Department [place], [place] [id number] Patient Name: DANNIELEL GUIDRY MR#: [id number] Location: [facility] Ordering Phys: Ciarra Rock DO Date of Service: 11/08/161724 PROCEDURE: US RENAL SONOGRAM INDICATIONS: acute renal failure TECHNIQUE: Real-time scanning was performed of the kidneys and bladder, with image documentation. COMPARISON: None. FINDINGS: Kidneys: Kidneys are normal in size. Right kidney measures 11.6 cm long; left kidney measures 10.1 cm long. Right renal cortical thickness is 1.2 cm; left renal cortical thickness is 1.0 cm. Renal cortical echotexture is normal. No hydronephrosis or nephrolithiasis. No suspicious solid mass lesions. Bladder: Pre-void bladder volume is 275 mL. Post-void residual is 109 mL. Pre -void images demonstrate no intraluminal masses or stones. On pre-void images, neither ureteral jets are noted with color Doppler interrogation. (Of note, ureteral jets may not be detectable in up to 25% of cases due to insufficient differences in specific gravity between ureteral and bladder urine). Miscellaneous: No free pelvic fluid. IMPRESSION: No hydronephrosis or nephrolithiasis found over the kidneys bilaterally but there is a moderate post void residual of 109 cc in the setting of the prevoid bladder volume of 275 cc. No bladder calculus found. Dictated by: Toi Bragg M.D. on 11/09/2016 at 11:41 Approved by: Toi Bragg M.D. on 11/09/2016 at 11:42 Balloon angioplasty of 3 focal high-grade stenoses within the mid and distal portion of the left superficial femoral artery. Mild to moderate residual stenosis remained secondary to dense atheromatous calcification. Although stenting of this region may help initial patency, stenting of the distal SFA increases the risk of vessel occlusion, and for that reason, is not recommended in this case. [facility] [place] [address] Patient Name: DANNIELLE GUIDRY MR#: [id number] Location: [facility] Ordering Phys: Ciarra Rock DO Date of Service: 11/08/161923 PROCEDURE: X-RAY CHEST ONE VIEW ([id number]) INDICATIONS: elevated BNP, check for CHF TECHNIQUE: One view of the chest was acquired. COMPARISON: [facility], CR, XR CHEST 1VW, 04/28/2015, 4:12. FINDINGS: Surgical changes and devices: None. Lungs and pleura: No pleural effusions or pneumothorax. Lungs are clear. Mediastinum: Mediastinal contours appear normal. Heart size is enlarged. Bones and chest wall: No suspicious bony lesions. Overlying soft tissues appear unremarkable. IMPRESSION: No acute process. Cardiomegaly. Dictated by: Rafael Cisse M.D. on 11/09/2016 at 8:53 Approved by: Rafael Cisse M.D. 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 She also appears to be in acute renal failure. Acute assessments Assessment #1 acute kidney injury: Likely prerenal from aggressive diuresis -- Creatinine of 1.84, from her previous admission she did have this level creatinine before, unclear what exactly her baseline is as she did improve to 1.0 at the time of discharge back in June 2016 -- This appears to be prerenal based on FE urea tests -- Repeat kidney function labs: Repeat labs on the floor showed sodium equals 113, currently 126 -- Renal ultrasound showed no acute findings -- magnesium phosphorus WNL, uric acid is elevated, urine osm are >100, serum osm<280, urine sodium is 17, TSH, cortisol are elavted, Pro BNP elevated > 6000 -- Patient is initially given IV fluids at normal saline running at 100 mL per hour after the blood draw for sodium is down on the floor once she arrived on the floor. -- Consulted nephrology, we appreciate the recommendations ( which include 500 mL bolus now, repeat renal panel later in the night) -- Plan to contact Dr. Leyva for some of the records: Still awaiting her records from Dr. Leyva, Dr. Landeros -- Plan to obtain her echo results to understand her ejection fraction: Echo read by Dr. Branham. 65-70% ejection fraction right ventricular overload with pulmonary hypertension 89 mm of self-medicating, functional bidirectional ASD, severe tricuspid regurgitation -- Hold all nephrotoxic medications Assessment #2 acute present on admission elevated uric acid level: -- Nephrology recommends allopurinol Assessment # 3 hyponatremia: This is due to hypovolemic hyponatremia secondary to fluid losses, now resolved, we appreciate nephrology's recommendations and management --Magnesium phosphorus WNL, uric acid is elevated, urine osm are >100, serum osm<280, urine sodium is 17, TSH, cortisol are elavted, Pro BNP elevated > 6000 -- Stable -- Nephrology is consulted, there recommendations are appreciated -- From analyzng the data, it appears that patient has hypovolemia, including EABV depletion state, ie CHF. Assessment #4 anemia likely due to blood loss likely secondary to AV malformation based on her history -- Type and screen, crossmatch one unit of blood ( we initially crossmatch [address] wright recommends starting with 1 this patient has a history of CHF) -- Iron panel, ferritin, TIBC, folate, B12, reticulocyte count were ordered: Parent shows a mixed picture of blood loss and chronic disease -- We will consult GI: has seen the patient and plans to do a colonoscopy : Patient is scheduled for this today -- Keep patient nothing by mouth overnight for a possible colonoscopy tomorrow -- Continue to monitor H&H -- Currently stable >8 Assessment #5 hypotension: Resolved -- Stable, continue to hold antihypertensives Assessment #6 pulmonary hypertension, clinical CHF with elevated BNP greater than 6000 -- [employer] consulted, they reviewing her echo that was ordered yesterday we appreciate their recommendations -- There is a small degree of interstitial prominence but no definite acute CHF the heart size is within normal limits for Repeat chest x-ray two-view on Chronic assessments Assessment #1 diabetes mellitus -- Plan on giving patient's Lantus 20 units daily at bedtime plus low sliding scale+ 5 units TIDWM -- diabetic diet prior -- Hold glipizide Assessment #2 hypertension: --Currently holding her medications, diuretics -- Fluids as above -- Patient is currently stable -- Hold metoprolol, hold hydralazine Assessment #3 congestive heart failure of diastolic type -- Holding diuresis as above -- Hold metoprolol -- Echo is ordered today by nephrology result is pending -- Cardiology is consulted we appreciate their recommendations Assessment #4 hypothyroidism -- Continue levothyroxine Assessment #5 CAD -- EKG, baseline chest x-ray: Repeat chest x-ray today shows -- Telemonitoring DVT prophylaxis: We will hold chemical DVT prophylaxis due to bleeding risk CODE STATUS: Unable to discuss with patient today, will discuss with her and sister tomorrow Alternate decision-maker: Sr. Marylin Alcaraz, 36 0-3 9 1-2 272 Pain Evaluation: Adequate Pain Control VTE Prophylaxis: SCDs, MAK Hose VTE Mechanical Devices: Intermittant Pneumatic CD Resuscitation Status: CPR: Attempt Resuscitation Ciarra Rock DO Nov 10, 2016 15:29
--- NOTE | 2016-11-10 15:32 | PCM.PNMED ---
Subjective Date of Service Nov 10, 2016 Exam Vital Signs Vital Sign - Last Date Time Temp Pulse Resp B/P Pulse Ox O2 Delivery O2 Flow Rate FiO2 11/10/16 03:11 86 18 96 Room Air 11/10/16 02:22 112/72 11/09/16 22:26 36.6 11/09/16 18:19 2.00 Intake and Output 11/09/16 11/09/16 11/10/16 Cumulative From/Thru 15:00 23:00 07:00 11/08/16 09:28 - 11/10/16 04:07 Intake Total 514 ml 872 ml 3800 ml Output Total 2600 ml 4500 ml Balance 514 ml -1728 ml -700 ml Intake Oral 872 ml 1472 ml IV Total 514 ml 1995 ml Packed Cells 333 ml Output Urine Total 2600 ml 4500 ml # Bowel Movements 0 0 Lab and Diagnostics Result Diagram: 11/09/16 1740 11/09/16 1740 X-Rays, CTs and MRIs [facility] Diagnostic Imaging Department [place], [place] [id number] Patient Name: DANNIELLE GUIDRY MR#: [id number] Location: [facility] Ordering Phys: Pranav Ciarra Archer Date of Service: 11/08/16 1725 PROCEDURE: US RENAL SONOGRAM INDICATIONS: acute renal failure TECHNIQUE: Real-time scanning was performed of the kidneys and bladder, with image documentation. COMPARISON: None. FINDINGS: Kidneys: Kidneys are normal in size. Right kidney measures 11.6 cm long; left kidney measures 10.1 cm long. Right renal cortical thickness is 1.2 cm; left renal cortical thickness is 1.0 cm. Renal cortical echotexture is normal. No hydronephrosis or nephrolithiasis. No suspicious solid mass lesions. Bladder: Pre-void bladder volume is 275 mL. Post-void residual is 109 mL. Pre -void images demonstrate no intraluminal masses or stones. On pre-void images, neither ureteral jets are noted with color Doppler interrogation. (Of note, ureteral jets may not be detectable in up to 25% of cases due to insufficient differences in specific gravity between ureteral and bladder urine). Miscellaneous: No free pelvic fluid. IMPRESSION: No hydronephrosis or nephrolithiasis found over the kidneys bilaterally but there is a moderate post void residual of 109 cc in the setting of the prevoid bladder volume of 275 cc. No bladder calculus found. Dictated by: Toi Bragg M.D. on 11/09/2016 at 11:41 Approved by: Toi Bragg M.D. on 11/09/2016 at 11:42 [facility] Diagnostic [place] [address] Patient Name: DANNIELLE GUIDRY MR#: [id number] Location: [facility] Ordering Phys: Pranav Ciarra Archer Date of Service: 11/08/161923 PROCEDURE: X-RAY CHEST ONE VIEW ([id number]) INDICATIONS: elevated BNP, check for CHF TECHNIQUE: One view of the chest was acquired. COMPARISON: [facility], CR, XR CHEST 1VW, 04/28/2015, 4:12. FINDINGS: Surgical changes and devices: None. Lungs and pleura: No pleural effusions or pneumothorax. Lungs are clear. Mediastinum: Mediastinal contours appear normal. Heart size is enlarged. Bones and chest wall: No suspicious bony lesions. Overlying soft tissues appear unremarkable. IMPRESSION: No acute process. Cardiomegaly. Dictated by: Rafael Cisse M.D. on 11/09/2016 at 8:53 Approved by: Rafael Cisse M.D. 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 She also appears to be in acute renal failure. Acute assessments Assessment #1 acute kidney injury: Likely prerenal from aggressive diuresis -- Creatinine of 1.84, from her previous admission she did have this level creatinine before, unclear what exactly her baseline is as she did improve to 1.0 at the time of discharge back in June 2016 -- Elevated uric acid as indicated above diuresis using diuretics -- This appears to be prerenal based on FE urea tests -- Repeat kidney function labs: Repeat labs on the floor showed sodium equals 113, currently 126 -- Renal ultrasound showed no acute findings -- magnesium phosphorus WNL, uric acid is elevated, urine osm are >100, serum osm<280, urine sodium is 17, TSH, cortisol are elavted, Pro BNP elevated > 6000 -- Patient is initially given IV fluids at normal saline running at 100 mL per hour after the blood draw. -- Consulted nephrology, Dr. wright is aware we appreciate the recommendations ( which include 500 mL bolus now, repeat renal panel later in the night) -- Plan to contact Dr. Leyva for some of the records -- Plan to obtain her echo results to understand her ejection fraction -- Hold all nephrotoxic medications Assessment #2 hyponatremia: Likely from aggressive diuresis and volume depletion ---agnesium phosphorus WNL, uric acid is elevated, urine osm are >100, serum osm <280, urine sodium is 17, TSH, cortisol are elavted, Pro BNP elevated > 6000 -- Follow-ups sodium upon arrival to floor is 113, now 126 -- Nephrology is consulted, there recommendations are appreciated -- From analyzng the data, it appears that patient has hypovolemia, including EABV depletion state, ie CHF. Assessment #2 anemia likely due to blood loss likely secondary to AV malformation based on her history -- Type and screen, crossmatch one unit of blood ( we initially crossmatch [address] wright recommends starting with 1 this patient has a history of CHF) -- Iron panel, ferritin, TIBC, folate, B12, reticulocyte count were ordered -- We will consult GI: has seen the patient and plans to do a colonoscopy tomorrow -- Keep patient nothing by mouth overnight for a possible colonoscopy tomorrow -- Continue to monitor H&H -- Currently stable at 7.7 Assessment #3 hypotension -- Stable, continue to hold antihypertensives Chronic assessments Assessment #1 diabetes mellitus -- Plan on giving patient's Lantus 20 units daily at bedtime plus low sliding scale+ 5 units TIDWM -- Nothing by mouth after midnight, diabetic diet prior to that -- Hold glipizide Assessment #2 hypertension: --Currently holding her medications, diuretics -- Fluids as above -- Patient is currently stable -- Hold metoprolol, hold hydralazine Assessment #3 congestive heart failure of unknown type -- Holding diuresis as above -- Hold metoprolol -- Echo is ordered today by nephrology result is pending -- We will consider cardiology consult tomorrow Assessment #4 hypothyroidism -- Continue levothyroxine Assessment #5 CAD -- EKG, baseline chest x-ray -- Telemonitoring DVT prophylaxis: We will hold chemical DVT prophylaxis due to bleeding risk CODE STATUS: Unable to discuss with patient today, will discuss with her and sister tomorrow Alternate decision-maker: Sr. Marylin Alcaraz, 36 0-3 9 1-2 272 VTE Prophylaxis: SCDs, MAK Rolle VTE Mechanical Devices: Intermittant Pneumatic CD Resuscitation Status: CPR: Attempt Resuscitation Ciarra Rock DO Nov 10, 2016 05:32
[2016-11-10] MEDS: Lidocaine Topical 5% Patch TOPICAL SCH (16:09)
--- NOTE | 2016-11-10 16:11 | ENDO ---
[address] [address] ENDOSCOPY PROCEDURE PATIENT: DANNIELLE GUIDRY : 1950 MR#: [id number] ADMIT: 11/08/2016 JOB ID: [id number] PRIMARY PROVIDER: Brittany Leyva MD. PROCEDURE: Esophagogastroduodenoscopy and a colonoscopy with hot snare polypectomy. INDICATIONS: A 65-year-old female admitted for anemia and a history of red blood per rectum. Endoscopic interrogation is pursued. EQUIPMENT: GIF-H180J and PCF-H180AL. SEDATION: Monitored anesthesia as provided by Dr. Rafiq Burgos. COMPLICATIONS: None identified. BOWEL PREPARATION: Fair, adequate exam. PROCEDURE INFORMATION: After the risks and benefits were explained, written and verbal informed consent was obtained, the patient was brought into the endoscopy suite and placed into the left lateral decubitus position. Sedation was achieved as above, the scope introduced into the mouth through the bite block, and advanced under direct visualization to the second portion the duodenum. The scope was slowly withdrawn to carefully examine the mucosa for any defects or lesions. Retroflexed views were accomplished in the stomach. The stomach was decompressed, the scope removed the patient who tolerated the procedure well. The patient was then turned around, a digital rectal examination accomplished. Moderate internal/external nonbleeding, nonthrombosed hemorrhoids were noted. There were, however, some very subtle elements of clot debris on the lubricated gloved index finger. The scope was introduced into the rectum and advanced under direct visualization to the cecum as identified by the appendiceal orifice and ileocecal valve. The scope was slowly withdrawn to carefully examine the mucosa for any defects or lesions. Multiple direct views were made through the dentate line for exclusion of pathology. The colon was decompressed, the scope removed from the patient who tolerated the procedure well. FINDINGS: 1. Duodenum. No new or old blood. No vascular pathology. No source of bleeding identified from the bulb through to the second portion. The mucosa appeared normal in appearance. 2. Stomach: No new or old blood. There was some retained food debris that was fairly easily suctioned up with the endoscope. No outlet obstruction. No ulcers. No mass lesions. No vascular pathology. No source of upper GI bleeding identified. Retroflexed views of the LES are rather unremarkable. 3. Esophagus: The squamocolumnar junction correlated with the top of the gastric folds. No acute erosive changes. No strictures. No mass lesions. Subtle sliding hiatal hernia and a nonobstructing Schatzki's ring were identified. The remainder of the esophagus appeared normal. 4. Colon: The patient had moderate sigmoid diverticulosis. There was a small 5 mm polyp in the ascending colon removed with hot snare. Other than the very subtle of flecks of blood and clot seen down low approaching the dentate line I did not see any sign of blood anywhere in the colon. Retained stool and prep matter was a yellow color. No evidence of any macroscopic colitis. No mass lesions. I did not appreciate any AVMs or vascular pathology. On direct views through the anorectum, there were moderately engorged internal hemorrhoids. ENDOSCOPIC DIAGNOSES: 1. Subtle sliding hiatal hernia. 2. Nonobstructing Schatzki's. 3. Clinical suggestion of mild underlying gastroparesis. 4. No acute or recent upper GI bleeding source. 5. Colonic diverticulosis. 6. Colon polyp. 7. Moderately engorged and irritated internal and external hemorrhoids. RECOMMENDATIONS: 1. Await histopathology. 2. Repeat colonoscopy, five years. 3. Continue close monitoring of the patient. She has a history of telangiectasia within the small bowel and if recurrent bleeding occurs, I would recommend the patient be evaluated by way of double balloon small-bowel enteroscopy down at [facility]. 4. In the interim, the patient would be encouraged to take intermittent warm Epsom salt baths as therapy for the hemorrhoidal engorgement. The patient is to take a consistent bowel regimen for soft, daily evacuations and to avoid straining at stool. 5. P.r.n. preparation H suppositories. 6. P.r.n. surgical consultation if bright red blood/hemorrhoidal irritation persists.
--- NOTE | 2016-11-10 16:33 | PCM.ANEP2 ---
Post Anesthesia Evaluation ASA/CMS Post Anesthesia VS in Patient's Normal Range?: Yes Resp Stable; Airway Patent?: Yes CV Function & Hydration Stable: Yes Mental Status Recovered?: Yes Pain control Satisfactory?: Yes N/V Control Satisfactory?: Yes Rafiq Burgos MD Nov 10, 2016 16:33
--- NOTE | 2016-11-10 16:33 | PCM.ANEP1 ---
Post Anesthesia Phase 1 PACU Phase 1 Assessment Date of Service: Nov 10, 2016 Vital Signs Vital Signs Date Time Temp Pulse Resp B/P Pulse Ox O2 Delivery O2 Flow Rate FiO2 11/10/16 15:40 112 16 122/71 95 Room Air 11/10/16 15:30 114 16 107/79 93 Room Air 11/10/16 15:20 113 16 118/72 99 Nasal Cannula 2 11/10/16 15:10 113 16 110/65 97 Nasal Cannula 2 11/10/16 14:06 92 18 120/57 96 Room Air 11/10/16 09:29 36.4 96 20 127/79 94 Room Air 11/10/16 09:00 76 18 96 Room Air Anesthetic Administered: TIVA Level of Alertness: Awake, talking BANKS's with Equal Strength: Yes Pain: No Pain Scale Score: 0 Nausea or Vomiting: No Oxygen Delivery: Nasal Cannula Lungs: Diminished, Coarse Rafiq Burgos MD Nov 10, 2016 16:33
--- NOTE | 2016-11-10 19:26 | NUR ---
Endoscope: Patient had upper and lower GI today . She was able to complete her Colyte and her stool is watery and burgundy in color. Patient tolerated the procedure without issues. She came back to her room and ordered her dinner.
[2016-11-10] MEDS: Insulin GLARgine 100 Unit/mL Syringe SUBQ SCH (21:00)
--- NOTE | 2016-11-10 21:13 | PCM.PNMED ---
Subjective Date of Service Nov 10, 2016 Subjective Patient is seen and examined. She appears to be much better mood today Exam Vital Signs Vital Sign - Last Date Time Temp Pulse Resp B/P Pulse Ox O2 Delivery O2 Flow Rate FiO2 11/10/16 20:31 108 18 94 Room Air 11/10/16 19:52 36.9 119/71 11/10/16 15:20 2 Intake and Output 11/09/16 11/09/16 11/10/16 Cumulative From/Thru 15:00 23:00 07:00 11/08/16 09:28 - 11/10/16 04:07 Intake Total 514 ml 872 ml 3800 ml Output Total 2600 ml 4500 ml Balance 514 ml -1728 ml -700 ml Intake Oral 872 ml 1472 ml IV Total 514 ml 1995 ml Packed Cells 333 ml Output Urine Total 2600 ml 4500 ml # Bowel Movements 0 0 Lab and Diagnostics Result Diagram: 11/10/1651611/10/16516 X-Rays, CTs and MRIs [facility] Diagnostic [place] [address] Patient Name: DANNIELLE GUIDRY MR#: [id number] [place] [facility] [place]ing Phys: Ciarra Rock DO Date of Service: 11/08/161724 PROCEDURE: US RENAL SONOGRAM INDICATIONS: acute renal failure TECHNIQUE: Real-time scanning was performed of the kidneys and bladder, with image documentation. COMPARISON: None. FINDINGS: Kidneys: Kidneys are normal in size. Right kidney measures 11.6 cm long; left kidney measures 10.1 cm long. Right renal cortical thickness is 1.2 cm; left renal cortical thickness is 1.0 cm. Renal cortical echotexture is normal. No hydronephrosis or nephrolithiasis. No suspicious solid mass lesions. Bladder: Pre-void bladder volume is 275 mL. Post-void residual is 109 mL. Pre -void images demonstrate no intraluminal masses or stones. On pre-void images, neither ureteral jets are noted with color Doppler interrogation. (Of note, ureteral jets may not be detectable in up to 25% of cases due to insufficient differences in specific gravity between ureteral and bladder urine). Miscellaneous: No free pelvic fluid. IMPRESSION: No hydronephrosis or nephrolithiasis found over the kidneys bilaterally but there is a moderate post void residual of 109 cc in the setting of the prevoid bladder volume of 275 cc. No bladder calculus found. Dictated by: Toi Bragg M.D. on 11/09/2016 at 11:41 Approved by: Toi Bragg M.D. on 11/09/2016 at 11:42 [facility] Diagnostic [place] [address] Patient Name: DANNIELLE GUIDRY MR#: [id number] [place] [facility] [place] Ordering Phys: Rock Ciarra Archer Date of Service: 11/08/161923 PROCEDURE: X-RAY CHEST ONE VIEW ([id number]) INDICATIONS: elevated BNP, check for CHF TECHNIQUE: One view of the chest was acquired. COMPARISON: [facility], CR, XR CHEST 1VW, 04/28/2015, 4:12. FINDINGS: Surgical changes and devices: None. Lungs and pleura: No pleural effusions or pneumothorax. Lungs are clear. Mediastinum: Mediastinal contours appear normal. Heart size is enlarged. Bones and chest wall: No suspicious bony lesions. Overlying soft tissues appear unremarkable. IMPRESSION: No acute process. Cardiomegaly. Dictated by: Rafael Cisse M.D. on 11/09/2016 at 8:53 Approved by: Rafael Cisse M.D. 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 She also appears to be in acute renal failure. Acute assessments Assessment #1 acute kidney injury: Likely prerenal from aggressive diuresis -- Creatinine of 1.84, from her previous admission she did have this level creatinine before, unclear what exactly her baseline is as she did improve to 1.0 at the time of discharge back in June 2016 -- Elevated uric acid as indicated above diuresis using diuretics -- This appears to be prerenal based on FE urea tests -- Repeat kidney function labs: Repeat labs on the floor showed sodium equals 113, currently 126 -- Renal ultrasound showed no acute findings -- magnesium phosphorus WNL, uric acid is elevated, urine osm are >100, serum osm<280, urine sodium is 17, TSH, cortisol are elavted, Pro BNP elevated > 6000 -- Patient is initially given IV fluids at normal saline running at 100 mL per hour after the blood draw. -- Consulted nephrology, Dr. wright is aware we appreciate the recommendations ( which include 500 mL bolus now, repeat renal panel later in the night) -- Plan to contact Dr. Leyva for some of the records -- Plan to obtain her echo results to understand her ejection fraction -- Hold all nephrotoxic medications Assessment #2 hyponatremia: Likely from aggressive diuresis and volume depletion ---agnesium phosphorus WNL, uric acid is elevated, urine osm are >100, serum osm <280, urine sodium is 17, TSH, cortisol are elavted, Pro BNP elevated > 6000 -- Follow-ups sodium upon arrival to floor is 113, now 126 -- Nephrology is consulted, there recommendations are appreciated -- From analyzng the data, it appears that patient has hypovolemia, including EABV depletion state, ie CHF. Assessment #2 anemia likely due to blood loss likely secondary to AV malformation based on her history -- Type and screen, crossmatch one unit of blood ( we initially crossmatch [address] wright recommends starting with 1 this patient has a history of CHF) -- Iron panel, ferritin, TIBC, folate, B12, reticulocyte count were ordered -- We will consult GI: has seen the patient and plans to do a colonoscopy tomorrow -- Keep patient nothing by mouth overnight for a possible colonoscopy tomorrow -- Continue to monitor H&H -- Currently stable at 7.7 Assessment #3 hypotension -- Stable, continue to hold antihypertensives Chronic assessments Assessment #1 diabetes mellitus -- Plan on giving patient's Lantus 20 units daily at bedtime plus low sliding scale+ 5 units TIDWM -- Nothing by mouth after midnight, diabetic diet prior to that -- Hold glipizide Assessment #2 hypertension: --Currently holding her medications, diuretics -- Fluids as above -- Patient is currently stable -- Hold metoprolol, hold hydralazine Assessment #3 congestive heart failure of unknown type -- Holding diuresis as above -- Hold metoprolol -- Echo is ordered today by nephrology result is pending -- We will consider cardiology consult tomorrow Assessment #4 hypothyroidism -- Continue levothyroxine Assessment #5 CAD -- EKG, baseline chest x-ray -- Telemonitoring DVT prophylaxis: We will hold chemical DVT prophylaxis due to bleeding risk CODE STATUS: Unable to discuss with patient today, will discuss with her and sister tomorrow Alternate decision-maker: Sr. Marylin Alcaraz, 36 0-3 9 1-2 272 VTE Prophylaxis: JOLYNNs, MAK Rolle VTE Mechanical Devices: Intermittant Pneumatic CD Resuscitation Status: CPR: Attempt Resuscitation Ciarra Rock DO Nov 10, 2016 21:13
--- NOTE | 2016-11-10 23:45 | NUR ---
HR Pt HR was 118 and 128, paged Dr, EKG ordered. EKG done and gave Dr results. Instructed to continue to monitor Pt, if HR over 130 then will page again.
[2016-11-11] VITALS (13 sets, daily range): BP systolic 98–119; BP diastolic 49–77; PULSE 94–122; RESP 18–20; O2SAT 91–100
[2016-11-11] MEDS: Albuterol-Ipratropium 3 mL Inhalation Solution NEB SCH ×4 (01:42→22:08)
--- NOTE | 2016-11-11 01:50 | NUR ---
BP Pt BP was 98/67 and HR 122, paged night hospitalist with information. Will continue to monitor.
[2016-11-11 05:39] LABS: Mean Corpuscular Hemoglobin 28.2 pg (27.0-35.0); Mean Corpuscular Volume 94.4 fL (81-100)
--- NOTE | 2016-11-11 05:40 | PCM.PNMED ---
Subjective Date of Service Nov 11, 2016 Subjective The patient's renal function continues to do well. Her sodium has corrected to 134. Blood pressures have been good and her intake and output the last 24 hours for 3540 580 out. Denies any chest pain, shortness of breath, cough or wheezing Exam Vital Signs Vital Sign - Last Date Time Temp Pulse Resp B/P Pulse Ox O2 Delivery O2 Flow Rate FiO2 11/11/16 05:23 36.8 113 20 103/64 91 Room Air 11/10/16 15:20 2 Intake and Output 11/10/16 11/10/16 11/11/16 Cumulative From/Thru 15:00 23:00 07:00 11/08/16 09:28 - 11/10/16 19:43 Intake Total 2000 ml 1476 ml 7276 ml Output Total 3200 ml 3000 ml 93978 ml Balance -1200 ml -1524 ml -3424 ml Intake Oral 2000 ml 1276 ml 4748 ml IV Total 200 ml 2195 ml Packed Cells 333 ml Output Urine Total 2000 ml 1300 ml 7800 ml Stool Total 1200 ml 1700 ml 2900 ml # Bowel Movements 0 Exam General: NAD HEENT: NCAT Eyes: [place] conjunctivae. No ptosis, PERRL Neck: No masses, trachea midline, no thyromegaly Lungs: CTA with normal respiratory effort CV: RRR, no murmurs/rubs/gallops, normal PMI GI: Soft, non-tender with no hepatosplenomegaly MSK: Normal gait and station, no digital cyanosis Skin: Warm and dry. No rash, lesions or ulcers Psych: A&O X3, with approprate affect IVs and Medications IV Fluids none, pt is on fluid restriction Medications Reviewed: Medications were reviewed in detail Lab and Diagnostics Result Diagram: 11/10/1651611/10/16516 X-Rays, CTs and MRIs [facility] Diagnostic [place] [address] Patient Name: DANNIELLE GUIDRY MR#: [id number] [place] [facility] [place] Ordering Phys: Ciarra Rock DO Date of Service: 11/08/16 1725 PROCEDURE: US RENAL SONOGRAM INDICATIONS: acute renal failure TECHNIQUE: Real-time scanning was performed of the kidneys and bladder, with image documentation. COMPARISON: None. FINDINGS: Kidneys: Kidneys are normal in size. Right kidney measures 11.6 cm long; left kidney measures 10.1 cm long. Right renal cortical thickness is 1.2 cm; left renal cortical thickness is 1.0 cm. Renal cortical echotexture is normal. No hydronephrosis or nephrolithiasis. No suspicious solid mass lesions. Bladder: Pre-void bladder volume is 275 mL. Post-void residual is 109 mL. Pre -void images demonstrate no intraluminal masses or stones. On pre-void images, neither ureteral jets are noted with color Doppler interrogation. (Of note, ureteral jets may not be detectable in up to 25% of cases due to insufficient differences in specific gravity between ureteral and bladder urine). Miscellaneous: No free pelvic fluid. IMPRESSION: No hydronephrosis or nephrolithiasis found over the kidneys bilaterally but there is a moderate post void residual of 109 cc in the setting of the prevoid bladder volume of 275 cc. No bladder calculus found. Dictated by: Toi Bragg M.D. on 11/09/2016 at 11:41 Approved by: Toi Bragg M.D. on 11/09/2016 at 11:42 [facility] Diagnostic [place] [address] Patient Name: DANNIELLE GUIDRY MR#: [id number] Location: [facility] [place] Ordering Phys: Ciarra Rock DO Date of Service: 11/08/161923 PROCEDURE: X-RAY CHEST ONE VIEW ([id number]) INDICATIONS: elevated BNP, check for CHF TECHNIQUE: One view of the chest was acquired. COMPARISON: [facility], CR, XR CHEST 1VW, 04/28/2015, 4:12. FINDINGS: Surgical changes and devices: None. Lungs and pleura: No pleural effusions or pneumothorax. Lungs are clear. Mediastinum: Mediastinal contours appear normal. Heart size is enlarged. Bones and chest wall: No suspicious bony lesions. Overlying soft tissues appear unremarkable. IMPRESSION: No acute process. Cardiomegaly. Dictated by: Rafael Cisse M.D. on 11/09/2016 at 8:53 Approved by: Rafael Cisse M.D. on 11/09/2016 at 8:53 None 12-lead ECG None Cardiac Echo Impressions [facility] Diagnostic [place] [address] Patient Name: DANNIELLE GUIDRY MR#: [id number] Location: [facility] [place] Ordering Phys: Vincent Diaz DO Date of Service: 11/10/16 1106 [facility] [address] [place] [address] Echocardiogram Report Name: DANNIELLE GUIDRY LStudy Date: 11/10/2016 Height: 67 in Hospital Exam Location: [facility] Weight: 22 4 lb Gender: Female BSA: 2.1 m2 : 1950 Age: 65 yrs BP: 120/72 mmHg Reason For Study: Fluid overload, Congestive Heart Failure Ordering Physician: HOSPITALIST [facility] Performed By: Reuben Benoit Referring Physician: VINCENT CANO Interpretation Summary 1) Normal left ventricular thickness, size, and systolic function (EF 65- 70%). 2) Flattened septum is consistent with RV pressure/volume overload. 3) Severely dilated right ventricle with moderately reduced function. 4) Mitral clip present on the mitral valve with moderate anteriorly directed mitral regurgitation. 5) Severe inflow mitral gradient present (mean 14mmHg). Heart rate during the echo was in the 90s. 6) Severe tricuspid regurgitation present. 7) Severe pulmonary hypertension present, estimated systolic pulmonary pressure of 89mmHg. 8) Severe biatrial enlargement present with functional bidirectional ASD present. 9) Compared to the Echo done 11/21/2014, transmitral gradient is higher on today's study but this is probably due to increased heart rate on today's study. Procedure: A two-dimensional transthoracic echocardiogram with color flow and Doppler was performed. Parasternal images are fair; apical images are difficult. Definity was not used due to bidirectional shunt. Comparison is made with the echocardiogram of 11/21/14. The heart rate ranged between 90-108 bpm during the study. Left Ventricle: The left ventricle is normal in size. Left ventricular wall thickness is mildly increased. The ejection fraction is estimated to be 65- 70%. Left ventricular systolic function is normal. Flattened septum is consistent with RV pressure/volume overload. Assessment of diastolic parameters suggests a pseudonormalization pattern, consistent with elevated filling pressures. Right Ventricle: The right ventricle is severely dilated. Right ventricular systolic function is moderate to severely reduced. Atria: The left atrium is severely dilated. The right atrium is severely dilated. There is a small ASD that is bidirectional. Mitral Valve: A mitral valve clip is present. The mitral valve mean gradient is 14 mmHg. There is a eccentric jet of moderate MR aimed anteriorly. Aortic Valve: The aortic valve is trileaflet. The aortic valve is slightly calcified. There is no aortic valve stenosis. No aortic regurgitation is present. Tricuspid Valve: The tricuspid valve is not well visualized, but is grossly normal. There is severe tricuspid regurgitation. The right ventricular systolic pressure is estimated at 89 mmHg assuming a right atrial pressure of 8 mm Hg. Pulmonic Valve: The pulmonic valve is not well seen, but is grossly normal. There is no pulmonic valvular regurgitation. Great Vessels: The aortic root is normal size. The dimensions of the ascending aorta are normal. The pulmonary artery is normal size. The IVC is dilated (diameter is greater than 2.1 cm) yet it collapses greater than 50% with a sniff. This suggests a right atrial pressure of 8 mm Hg. Pericardium/ Pleura There is no pericardial effusion. There is no pleural effusion. MMode/2D Measurements & Calculations LVIDd: 4.8 cm RA long axis LVOT diam: 2.0 cm LVIDs: 2.9 cm LA A2 area: 28.2 cm Ao root diam FS: 39.2 % LA A4 area: 28.5 cm RA area IVSd: 1.0 cm LA length (vol) asc Aorta Diam LVPWd: 0.88 cm : 26.1 cm LA vol: 106.6 ml RA vol Ao Arch Diam (Prox LA vol index : 94.9 ml Trans): 2.2 cm RA : 44.7 mm2 IVC diam: 2.3 cm LV griffiths. diameter/BSA LV sys. diameter/BSA TAPSE: 1.1 cm (cm/m^2): 2.3 (cm/m^2): 1.4 Doppler Measurements & Calculations Ao V2 max: 149.3 cm/sec MV E max huber MV E/A: 1.5 TR max huber Ao max P.9 mmHg : 285.4 cm/sec : 451.2 cm/sec Ao mean P.6 mmHg MV A max huber TR max PG LVOT Max Huber : 196.3 cm/sec : 81.4 mmHg : 109.7 cm/sec PA V2 max MVA(VTI): 0.79 cm2 : 133.1 cm/sec ENZO(I,D): 2.5 cm PA mean PG sev ratio: 0.78 : 3.8 mmHg MV V2 mean: 184.0 cm/secAo V2 mean LV V1 max PG PA V2 mean MV mean P.3 mmHg : 101.3 cm/sec : 94.7 cm/sec MV V2 VTI: 60.4 cm Ao V2 VTI: 18.9 cm LV V1 VTI PA pr(Accel) MV dec time: 0.22 sec : 14.9 cm : 49.4 mmHg ENZO(V,D): 2.4 cm2 ENZO indexed to BSA (cm^2/m^2): 1.2 Reading Physician:03:08 PM Assessment & Plan This is a 65-year-old female with past medical history of medication usage for diuresis of her legs, history of previous anemia status post transfusions, 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 She also appears to be in acute renal failure. Acute assessments Assessment #1 acute kidney injury: Likely prerenal from aggressive diuresis, resolved -- Creatinine of 1.84, from her previous admission she did have this level creatinine before, unclear what exactly her baseline is as she did improve to 1.0 at the time of discharge back in June 2016, back to wnl -- Elevated uric acid as indicated above diuresis using diuretics -- This appears to be prerenal based on FE urea tests -- Repeat kidney function labs: Repeat labs on the floor showed sodium equals 113, currently 126 -- Renal ultrasound showed no acute findings -- magnesium phosphorus WNL, uric acid is elevated, urine osm are >100, serum osm<280, urine sodium is 17, TSH, cortisol are elavted, Pro BNP elevated > 6000 -- Patient is initially given IV fluids at normal saline running at 100 mL per hour after the blood draw. -- Consulted nephrology, Dr. wright is aware we appreciate the recommendations ( which include 500 mL bolus now, repeat renal panel later in the night) -- Plan to contact Dr. Leyva for some of the records -- Plan to obtain her echo results to understand her ejection fraction -- Hold all nephrotoxic medications Assessment #2 hyponatremia: Likely from aggressive diuresis and volume depletion resolved ---agnesium phosphorus WNL, uric acid is elevated, urine osm are >100, serum osm <280, urine sodium is 17, TSH, cortisol are elavted, Pro BNP elevated > 6000 -- Follow-ups sodium upon arrival to floor is 113, now 126 -- Nephrology is consulted, there recommendations are appreciated -- From analyzng the data, it appears that patient has hypovolemia, including EABV depletion state, ie CHF. Assessment #2 anemia likely due to blood loss likely secondary to AV malformation based on her history -- Type and screen, crossmatch one unit of blood ( we initially crossmatch [address] wright recommends starting with 1 this patient has a history of CHF) -- Iron panel, ferritin, TIBC, folate, B12, reticulocyte count were ordered -- We will consult GI: has seen the patient and plans to do a colonoscopy tomorrow -- Keep patient nothing by mouth overnight for a possible colonoscopy tomorrow -- Continue to monitor H&H -- Currently stable at >8 -"ENDOSCOPIC DIAGNOSES: 1. Subtle sliding hiatal hernia. 2. Nonobstructing Schatzki's. 3. Clinical suggestion of mild underlying gastroparesis. 4. No acute or recent upper GI bleeding source. 5. Colonic diverticulosis. 6. Colon polyp. 7. Moderately engorged and irritated internal and external hemorrhoids. RECOMMENDATIONS: 1. Await histopathology. 2. Repeat colonoscopy, five years. 3. Continue close monitoring of the patient. She has a history of telangiectasia within the small bowel and if recurrent bleeding occurs, I would recommend the patient be evaluated by way of double balloon small-bowel enteroscopy down at [facility]. 4. In the interim, the patient would be encouraged to take intermittent warm Epsom salt baths as therapy for the hemorrhoidal engorgement. The patient is to take a consistent bowel regimen for soft, daily evacuations and to avoid straining at stool. 5. P.r.n. preparation H suppositories. 6. P.r.n. surgical consultation if bright red blood/hemorrhoidal irritation persists." Assessment #3 hypotension -- Stable, continue to hold antihypertensives Chronic assessments Assessment #1 diabetes mellitus -- Plan on giving patient's Lantus 20 units daily at bedtime plus low sliding scale+ 5 units TIDWM -- Nothing by mouth after midnight, diabetic diet prior to that -- Hold glipizide Assessment #2 hypertension: --Currently holding her medications, diuretics -- Fluids as above -- Patient is currently stable -- Hold metoprolol, hold hydralazine Assessment #3 congestive heart failure of unknown type -- Holding diuresis as above -- Hold metoprolol -- Echo is ordered today by nephrology result is pending -- We will consider cardiology consult tomorrow Assessment #4 hypothyroidism -- Continue levothyroxine Assessment #5 CAD -- EKG, baseline chest x-ray -- Telemonitoring DVT prophylaxis: We will hold chemical DVT prophylaxis due to bleeding risk CODE STATUS: Unable to discuss with patient today, will discuss with her and sister tomorrow Alternate decision-maker: Sr. Marylin Alcaraz, 36 0-3 9 1-2 272 VTE Prophylaxis: SCDs, MAK Rolle VTE Mechanical Devices: Intermittant Pneumatic CD Resuscitation Status: CPR: Attempt Resuscitation Ciarra Rock DO Nov 11, 2016 05:40
[2016-11-11] MEDS ORDERED: Phenyleph-Petrol-Min Oil 57 Gm Ointment RECTAL PRN (05:45)
[2016-11-11] MEDS: Polyethylene Glycol (PEG) 17 Gm Powder PO SCH (08:30)
[2016-11-11] MEDS ORDERED: Potassium Chloride 20 mEq SR Tablet PO ONE ×2 (09:05→16:30)
--- NOTE | 2016-11-11 09:20 | NUR ---
Pt gave verbal authorization to sign CONTRERAS. Stated she was unable to physically sign. ISABELLE Jeffers
[2016-11-11] MEDS: Fluticasone 0.05% 15 Spray/2 Gm 16 Gm Nasal Spray NASAL SCH ×2 (09:46→20:51)
[2016-11-11] MEDS: Insulin LISPRO 300 Unit/3 mL Inj SUBQ SCH ×4 (09:49→21:01)
[2016-11-11] MEDS: Pantoprazole 4 mg/mL 10 mL Inj IVPUSH SCH (09:51)
[2016-11-11] MEDS: Calcium Carbonate (Oyster Shell) 500 mg Tablet PO SCH (09:54)
[2016-11-11] MEDS: Lidocaine Topical 5% Patch TOPICAL SCH (09:59)
--- NOTE | 2016-11-11 12:08 | PCM.PNNEPH ---
Subjective Date of Service Nov 11, 2016 Subjective Patient continues to do well. She offers no new complaints and denies any chest pain, shortness of breath, cough or wheezing. Additional 3900 in and 2900 out. Her lab is unchanged with the exception that she is once again dropped another gram of hemoglobin down to 7.1. I do not feel this is due to fluids. Potassium is 3.1 today. Exam Vital Signs Vital Sign - Last Date Time Temp Pulse Resp B/P Pulse Ox O2 Delivery O2 Flow Rate FiO2 11/11/16 10:01 105 11/11/16 09:11 36.7 18 107/69 93 Room Air 11/10/16 15:20 2 Intake and Output 11/10/16 11/10/16 11/11/16 Cumulative From/Thru 15:00 23:00 07:00 11/08/16 09:28 - 11/10/16 19:43 Intake Total 2000 ml 1476 ml 7276 ml Output Total 3200 ml 3000 ml 97587 ml Balance -1200 ml -1524 ml -3424 ml Intake Oral 2000 ml 1276 ml 4748 ml IV Total 200 ml 2195 ml Packed Cells 333 ml Output Urine Total 2000 ml 1300 ml 7800 ml Stool Total 1200 ml 1700 ml 2900 ml # Bowel Movements 0 Exam HEENT examination is remarkable for pale sclera. Neck is supple without adenopathy, thyromegaly, or venous distention. Lungs are clear to auscultation. Heart is regular and rhythmical with a soft systolic murmur. Abdomen is soft without any tenderness rebound guarding masses or hepatosplenomegaly. Extremities do not show any evidence of any clubbing cyanosis or edema. Skin turgor is good nutritional evidence of any rashes. Lab and Diagnostics Result Diagram: 11/11/1652311/11/16523 X-Rays, CTs and MRIs LOCATED WITHIN [facility] Diagnostic [place] [address] Patient Name: DANNIELLE GUIDRY MR#: [id number] Location: [facility] Ordering Phys: Ciarra Rock DO Date of Service: 11/08/16 1725 PROCEDURE: US RENAL SONOGRAM INDICATIONS: acute renal failure TECHNIQUE: Real-time scanning was performed of the kidneys and bladder, with image documentation. COMPARISON: None. FINDINGS: Kidneys: Kidneys are normal in size. Right kidney measures 11.6 cm long; left kidney measures 10.1 cm long. Right renal cortical thickness is 1.2 cm; left renal cortical thickness is 1.0 cm. Renal cortical echotexture is normal. No hydronephrosis or nephrolithiasis. No suspicious solid mass lesions. Bladder: Pre-void bladder volume is 275 mL. Post-void residual is 109 mL. Pre -void images demonstrate no intraluminal masses or stones. On pre-void images, neither ureteral jets are noted with color Doppler interrogation. (Of note, ureteral jets may not be detectable in up to 25% of cases due to insufficient differences in specific gravity between ureteral and bladder urine). Miscellaneous: No free pelvic fluid. IMPRESSION: No hydronephrosis or nephrolithiasis found over the kidneys bilaterally but there is a moderate post void residual of 109 cc in the setting of the prevoid bladder volume of 275 cc. No bladder calculus found. Dictated by: Toi rBagg M.D. on 11/09/2016 at 11:41 Approved by: Toi Bragg M.D. on 11/09/2016 at 11:42 LOCATED [facility] Diagnostic [place] [address] Patient Name: DANNIELLE GUIDRY MR#: [id number] Location: [facility] Ordering Phys: Ciarra Rock DO Date of Service: 11/08/161923 PROCEDURE: X-RAY CHEST ONE VIEW ([id number]) INDICATIONS: elevated BNP, check for CHF TECHNIQUE: One view of the chest was acquired. COMPARISON: [facility], CR, XR CHEST 1VW, 04/28/2015, 4:12. FINDINGS: Surgical changes and devices: None. Lungs and pleura: No pleural effusions or pneumothorax. Lungs are clear. Mediastinum: Mediastinal contours appear normal. Heart size is enlarged. Bones and chest wall: No suspicious bony lesions. Overlying soft tissues appear unremarkable. IMPRESSION: No acute process. Cardiomegaly. Dictated by: Rafael Cisse M.D. on 11/09/2016 at 8:53 Approved by: Rafael Cisse M.D. on 11/09/2016 at 8:53 None 12-lead ECG None Cardiac Echo Impressions LOCATED [facility]IN [facility] Diagnostic [place] [address] Patient Name: DANNIELLE GUIDRY MR#: [id number] Location: [facility] Ordering Phys: Vincent Diaz DO Date of Service: 11/10/16 1106 [facility] [address] [place] [address] Echocardiogram Report Name: DANNIELLE GUIDRY LStudy Date: 11/10/2016 Height: 67 in Hospital Exam Location: [facility] Weight: 22 4 lb Gender: Female BSA: 2.1 m2 : 1950 Age: 65 yrs BP: 120/72 mmHg Reason For Study: Fluid overload, Congestive Heart Failure Ordering Physician: [facility]PITAL[facility] Performed By: Reuben Benoit Referring Physician: VINCENT CANO Interpretation Summary 1) Normal left ventricular thickness, size, and systolic function (EF 65- 70%). 2) Flattened septum is consistent with RV pressure/volume overload. 3) Severely dilated right ventricle with moderately reduced function. 4) Mitral clip present on the mitral valve with moderate anteriorly directed mitral regurgitation. 5) Severe inflow mitral gradient present (mean 14mmHg). Heart rate during the echo was in the 90s. 6) Severe tricuspid regurgitation present. 7) Severe pulmonary hypertension present, estimated systolic pulmonary pressure of 89mmHg. 8) Severe biatrial enlargement present with functional bidirectional ASD present. 9) Compared to the Echo done 11/21/2014, transmitral gradient is higher on today's study but this is probably due to increased heart rate on today's study. Procedure: A two-dimensional transthoracic echocardiogram with color flow and Doppler was performed. Parasternal images are fair; apical images are difficult. Definity was not used due to bidirectional shunt. Comparison is made with the echocardiogram of 11/21/14. The heart rate ranged between 90-108 bpm during the study. Left Ventricle: The left ventricle is normal in size. Left ventricular wall thickness is mildly increased. The ejection fraction is estimated to be 65- 70%. Left ventricular systolic function is normal. Flattened septum is consistent with RV pressure/volume overload. Assessment of diastolic parameters suggests a pseudonormalization pattern, consistent with elevated filling pressures. Right Ventricle: The right ventricle is severely dilated. Right ventricular systolic function is moderate to severely reduced. Atria: The left atrium is severely dilated. The right atrium is severely dilated. There is a small ASD that is bidirectional. Mitral Valve: A mitral valve clip is present. The mitral valve mean gradient is 14 mmHg. There is a eccentric jet of moderate MR aimed anteriorly. Aortic Valve: The aortic valve is trileaflet. The aortic valve is slightly calcified. There is no aortic valve stenosis. No aortic regurgitation is present. Tricuspid Valve: The tricuspid valve is not well visualized, but is grossly normal. There is severe tricuspid regurgitation. The right ventricular systolic pressure is estimated at 89 mmHg assuming a right atrial pressure of 8 mm Hg. Pulmonic Valve: The pulmonic valve is not well seen, but is grossly normal. There is no pulmonic valvular regurgitation. Great Vessels: The aortic root is normal size. The dimensions of the ascending aorta are normal. The pulmonary artery is normal size. The IVC is dilated (diameter is greater than 2.1 cm) yet it collapses greater than 50% with a sniff. This suggests a right atrial pressure of 8 mm Hg. Pericardium/ Pleura There is no pericardial effusion. There is no pleural effusion. MMode/2D Measurements & Calculations LVIDd: 4.8 cm RA long axis LVOT diam: 2.0 cm LVIDs: 2.9 cm LA A2 area: 28.2 cm Ao root diam FS: 39.2 % LA A4 area: 28.5 cm RA area IVSd: 1.0 cm LA length (vol) asc Aorta Diam LVPWd: 0.88 cm : 26.1 cm LA vol: 106.6 ml RA vol Ao Arch Diam (Prox LA vol index : 94.9 ml Trans): 2.2 cm RA : 44.7 mm2 IVC diam: 2.3 cm LV griffiths. diameter/BSA LV sys. diameter/BSA TAPSE: 1.1 cm (cm/m^2): 2.3 (cm/m^2): 1.4 Doppler Measurements & Calculations Ao V2 max: 149.3 cm/sec MV E max huber MV E/A: 1.5 TR max huber Ao max P.9 mmHg : 285.4 cm/sec : 451.2 cm/sec Ao mean P.6 mmHg MV A max huber TR max PG LVOT Max Huber : 196.3 cm/sec : 81.4 mmHg : 109.7 cm/sec PA V2 max MVA(VTI): 0.79 cm2 : 133.1 cm/sec ENZO(I,D): 2.5 cm PA mean PG sev ratio: 0.78 : 3.8 mmHg MV V2 mean: 184.0 cm/secAo V2 mean LV V1 max PG PA V2 mean MV mean P.3 mmHg : 101.3 cm/sec : 94.7 cm/sec MV V2 VTI: 60.4 cm Ao V2 VTI: 18.9 cm LV V1 VTI PA pr(Accel) MV dec time: 0.22 sec : 14.9 cm : 49.4 mmHg ENZO(V,D): 2.4 cm2 ENZO indexed to BSA (cm^2/m^2): 1.2 Reading Physician:03:08 PM Plan Impression Impression #1 acute hyponatremia which is resolved number to diabetic nephropathy #3 hypokalemia #4 hypertension with hypertensive heart disease and hypertensive nephrosclerosis #5 CHRONIC anemia however I feel that there is an acute component to this that needs to be investigated. Recommendations #1 and replace her potassium and would strongly recommend a GI evaluation. I will also order stool guaiac. Scar Cadet DO Nov 11, 2016 12:08
[2016-11-11] MEDS ORDERED: Darbepoetin Alfa 60 mCg/0.3 mL Inj SUBQ ONE (12:10)
[2016-11-11] MEDS ORDERED: Iron Sucrose Inj 200 MG in 0.9% Sodium Chloride 100 ML IV ONE (12:10)
--- NOTE | 2016-11-11 17:01 | PCM.DIMED ---
Discharge Instructions Date of Service Nov 11, 2016 Dates of Hospitalization Nov 08, 2016 at 13:40 Discharge Diagnosis Discharge Diagnosis Acute renal failure, hyponatremia, anemia due to blood loss vs chronic disease, Pulmonary Hypertension, RV Heart Failure, Rhuematoid Arthritis, Diverticulosis, Cognitive Deficits Medication Instructions Patient has received two doses of venofer 200 mg IV. She has also received one unit of blood. and darbepoeiten. She was re-started on her home medication Torsemide at 20 mg PO BID (home dose 40 mg PO BID) She is currently on a fluid restriciton : 1500 cc per day Test Results [facility] Diagnostic Imaging Department [place], [place] [id number] Patient Name: DANNIELLE GUIDRY MR#: [id number] Location: [facility] Ordering Phys: Ciarra Rock DO Date of Service: 11/10/16 1050 PROCEDURE: X-RAY CHEST, TWO VIEWS ([id number]) INDICATIONS: dyspnea TECHNIQUE: 2 views of the chest were acquired. COMPARISON: [facility], CR, XR CHEST 1VW, 11/08/2016, 19:42. [facility], CR, XR CHEST 2VW, 04/25/2015, 19:08. FINDINGS: Surgical changes and devices: 2 metallic surgical devices overlie the general region of the tricuspid valve, present on multiple prior chest plain films and presumably related to some form of prior cardiac surgery.. Lungs and pleura: No pleural effusions or pneumothorax. Lungs are clear. Mediastinum: Mediastinal contours are normal. Heart size is normal. Bones and chest wall: No suspicious bony abnormalities. Soft tissues appear unremarkable. IMPRESSION: Some form of prior cardiac surgery has been performed, with 2 linear metallic devices overlying the general region of the tricuspid bowel. There is a small degree of interstitial prominence but no definite acute CHF the heart size is within normal limits. Dictated by: Toi Bragg M.D. on 11/10/2016 at 12:37 Approved by: Toi Bragg M.D. on 11/10/2016 at 12:38 [facility] [place] [address] Patient Name: DANNIELLE GUIDRY MR#: [id number] Location: [facility] Ordering Phys: Ciarra Rock DO Date of Service: 11/08/16 1924 PROCEDURE: X-RAY CHEST ONE VIEW ([id number]) INDICATIONS: elevated BNP, check for CHF TECHNIQUE: One view of the chest was acquired. COMPARISON: [facility], CR, XR CHEST 1VW, 04/28/2015, 4:12. FINDINGS: Surgical changes and devices: None. Lungs and pleura: No pleural effusions or pneumothorax. Lungs are clear. Mediastinum: Mediastinal contours appear normal. Heart size is enlarged. Bones and chest wall: No suspicious bony lesions. Overlying soft tissues appear unremarkable. IMPRESSION: No acute process. Cardiomegaly. Dictated by: Rafael Cisse M.D. on 11/09/2016 at 8:53 Approved by: Rafael Cisse M.D. on 11/09/2016 at 8:53 [facility] Diagnostic Imaging [place] [address] Patient Name: DANNIELLE GUIDRY MR#: [id number] Location: [facility] Ordering Phys: Ciarra Rock DO Date of Service: 11/08/16 1725 PROCEDURE: US RENAL SONOGRAM INDICATIONS: acute renal failure TECHNIQUE: Real-time scanning was performed of the kidneys and bladder, with image documentation. COMPARISON: None. FINDINGS: Kidneys: Kidneys are normal in size. Right kidney measures 11.6 cm long; left kidney measures 10.1 cm long. Right renal cortical thickness is 1.2 cm; left renal cortical thickness is 1.0 cm. Renal cortical echotexture is normal. No hydronephrosis or nephrolithiasis. No suspicious solid mass lesions. Bladder: Pre-void bladder volume is 275 mL. Post-void residual is 109 mL. Pre -void images demonstrate no intraluminal masses or stones. On pre-void images, neither ureteral jets are noted with color Doppler interrogation. (Of note, ureteral jets may not be detectable in up to 25% of cases due to insufficient differences in specific gravity between ureteral and bladder urine). Miscellaneous: No free pelvic fluid. IMPRESSION: No hydronephrosis or nephrolithiasis found over the kidneys bilaterally but there is a moderate post void residual of 109 cc in the setting of the prevoid bladder volume of 275 cc. No bladder calculus found. Dictated by: Toi Bragg M.D. on 11/09/2016 at 11:41 Approved by: Toi Bragg M.D. on 11/09/2016 at 11:[address] [address] ENDOSCOPY PROCEDURE PATIENT: DANNIELLE GUIDRY : 1950 MR#: [id number] ADMIT: 11/08/2016 JOB ID: [id number] PRIMARY PROVIDER: Brittany Leyva MD. PROCEDURE: Esophagogastroduodenoscopy and a colonoscopy with hot snare polypectomy. INDICATIONS: A 65-year-old female admitted for anemia and a history of red blood per rectum. Endoscopic interrogation is pursued. EQUIPMENT: GIF-H180J and PCF-H180AL. SEDATION: Monitored anesthesia as provided by Dr. Rafiq Burgos. COMPLICATIONS: None identified. BOWEL PREPARATION: Fair, adequate exam. PROCEDURE INFORMATION: After the risks and benefits were explained, written and verbal informed consent was obtained, the patient was brought into the endoscopy suite and placed into the left lateral decubitus position. Sedation was achieved as above, the scope introduced into the mouth through the bite block, and advanced under direct visualization to the second portion the duodenum. The scope was slowly withdrawn to carefully examine the mucosa for any defects or lesions. Retroflexed views were accomplished in the stomach. The stomach was decompressed, the scope removed the patient who tolerated the procedure well. The patient was then turned around, a digital rectal examination accomplished. Moderate internal/external nonbleeding, nonthrombosed hemorrhoids were noted. There were, however, some very subtle elements of clot debris on the lubricated gloved index finger. The scope was introduced into the rectum and advanced under direct visualization to the cecum as identified by the appendiceal orifice and ileocecal valve. The scope was slowly withdrawn to carefully examine the mucosa for any defects or lesions. Multiple direct views were made through the dentate line for exclusion of pathology. The colon was decompressed, the scope removed from the patient who tolerated the procedure well. FINDINGS: 1. Duodenum. No new or old blood. No vascular pathology. No source of bleeding identified from the bulb through to the second portion. The mucosa appeared normal in appearance. 2. Stomach: No new or old blood. There was some retained food debris that was fairly easily suctioned up with the endoscope. No outlet obstruction. No ulcers. No mass lesions. No vascular pathology. No source of upper GI bleeding identified. Retroflexed views of the LES are rather unremarkable. 3. Esophagus: The squamocolumnar junction correlated with the top of the gastric folds. No acute erosive changes. No strictures. No mass lesions. Subtle sliding hiatal hernia and a nonobstructing Schatzki's ring were identified. The remainder of the esophagus appeared normal. 4. Colon: The patient had moderate sigmoid diverticulosis. There was a small 5 mm polyp in the ascending colon removed with hot snare. Other than the very subtle of flecks of blood and clot seen down low approaching the dentate line I did not see any sign of blood anywhere in the colon. Retained stool and prep matter was a yellow color. No evidence of any macroscopic colitis. No mass lesions. I did not appreciate any AVMs or vascular pathology. On direct views through the anorectum, there were moderately engorged internal hemorrhoids. ENDOSCOPIC DIAGNOSES: 1. Subtle sliding hiatal hernia. 2. Nonobstructing Schatzki's. 3. Clinical suggestion of mild underlying gastroparesis. 4. No acute or recent upper GI bleeding source. 5. Colonic diverticulosis. 6. Colon polyp. 7. Moderately engorged and irritated internal and external hemorrhoids. RECOMMENDATIONS: 1. Await histopathology. 2. Repeat colonoscopy, five years. 3. Continue close monitoring of the patient. She has a history of telangiectasia within the small bowel and if recurrent bleeding occurs, I would recommend the patient be evaluated by way of double balloon small-bowel enteroscopy down at [facility]. 4. In the interim, the patient would be encouraged to take intermittent warm Epsom salt baths as therapy for the hemorrhoidal engorgement. The patient is to take a consistent bowel regimen for soft, daily evacuations and to avoid straining at stool. 5. P.r.n. preparation H suppositories. 6. P.r.n. surgical consultation if bright red blood/hemorrhoidal irritation persists. Tim Allen MD 11/10/16 0528 <Electronically signed by Tim Allen MD> 11/10/16 5962 Report status: Signed Transcribed by: BIN 11/10/16 4232 REPORT#: [id number] cc: Brittany Leyva MD; Tim Allen MD [address] [address] ENDOSCOPY PROCEDURE PATIENT: DANNIELLE GUIDRY : 1950 MR#: [id number] ADMIT: 11/08/2016 JOB ID: [id number] PRIMARY PROVIDER: Brittany Leyva MD. PROCEDURE: Esophagogastroduodenoscopy and a colonoscopy with hot snare polypectomy. INDICATIONS: A 65-year-old female admitted for anemia and a history of red blood per rectum. Endoscopic interrogation is pursued. EQUIPMENT: GIF-H180J and PCF-H180AL. SEDATION: Monitored anesthesia as provided by Dr. Rafiq Burgos. COMPLICATIONS: None identified. BOWEL PREPARATION: Fair, adequate exam. PROCEDURE INFORMATION: After the risks and benefits were explained, written and verbal informed consent was obtained, the patient was brought into the endoscopy suite and placed into the left lateral decubitus position. Sedation was achieved as above, the scope introduced into the mouth through the bite block, and advanced under direct visualization to the second portion the duodenum. The scope was slowly withdrawn to carefully examine the mucosa for any defects or lesions. Retroflexed views were accomplished in the stomach. The stomach was decompressed, the scope removed the patient who tolerated the procedure well. The patient was then turned around, a digital rectal examination accomplished. Moderate internal/external nonbleeding, nonthrombosed hemorrhoids were noted. There were, however, some very subtle elements of clot debris on the lubricated gloved index finger. The scope was introduced into the rectum and advanced under direct visualization to the cecum as identified by the appendiceal orifice and ileocecal valve. The scope was slowly withdrawn to carefully examine the mucosa for any defects or lesions. Multiple direct views were made through the dentate line for exclusion of pathology. The colon was decompressed, the scope removed from the patient who tolerated the procedure well. FINDINGS: 1. Duodenum. No new or old blood. No vascular pathology. No source of bleeding identified from the bulb through to the second portion. The mucosa appeared normal in appearance. 2. Stomach: No new or old blood. There was some retained food debris that was fairly easily suctioned up with the endoscope. No outlet obstruction. No ulcers. No mass lesions. No vascular pathology. No source of upper GI bleeding identified. Retroflexed views of the LES are rather unremarkable. 3. Esophagus: The squamocolumnar junction correlated with the top of the gastric folds. No acute erosive changes. No strictures. No mass lesions. Subtle sliding hiatal hernia and a nonobstructing Schatzki's ring were identified. The remainder of the esophagus appeared normal. 4. Colon: The patient had moderate sigmoid diverticulosis. There was a small 5 mm polyp in the ascending colon removed with hot snare. Other than the very subtle of flecks of blood and clot seen down low approaching the dentate line I did not see any sign of blood anywhere in the colon. Retained stool and prep matter was a yellow color. No evidence of any macroscopic colitis. No mass lesions. I did not appreciate any AVMs or vascular pathology. On direct views through the anorectum, there were moderately engorged internal hemorrhoids. ENDOSCOPIC DIAGNOSES: 1. Subtle sliding hiatal hernia. 2. Nonobstructing Schatzki's. 3. Clinical suggestion of mild underlying gastroparesis. 4. No acute or recent upper GI bleeding source. 5. Colonic diverticulosis. 6. Colon polyp. 7. Moderately engorged and irritated internal and external hemorrhoids. RECOMMENDATIONS: 1. Await histopathology. 2. Repeat colonoscopy, five years. 3. Continue close monitoring of the patient. She has a history of telangiectasia within the small bowel and if recurrent bleeding occurs, I would recommend the patient be evaluated by way of double balloon small-bowel enteroscopy down at [facility]. 4. In the interim, the patient would be encouraged to take intermittent warm Epsom salt baths as therapy for the hemorrhoidal engorgement. The patient is to take a consistent bowel regimen for soft, daily evacuations and to avoid straining at stool. 5. P.r.n. preparation H suppositories. 6. P.r.n. surgical consultation if bright red blood/hemorrhoidal irritation persists. Tim Allen MD 11/10/16 1528 <Electronically signed by Tim Allen MD> 11/10/16 5329 Report status: Signed Transcribed by: BIN 11/10/16 7397 REPORT#: [id number] cc: Brittany Leyva MD; Tim Allen MD Diet Low fat, Low Sodium, Heart Healthy, Diabetic Activity No restrictions Call your provider Fever or Chills, Shortness of breath, Bleeding, Chest pain, Vomitting, Excessive diarrhea, Weakness (unilateral), Other Patient Instructions Follow-up plan As determined by the receiving hospital. Ciarra Rock DO Nov 11, 2016 17:01
[2016-11-11] MEDS ORDERED: TORS20TA PO (17:23)
[2016-11-11] MEDS ORDERED: INSLIS SUBQ (17:23)
--- NOTE | 2016-11-11 17:33 | PCM.DC.MED ---
Discharge Summary Date of Service Nov 11, 2016 Dates of Hospitalization Date of Hospital Admission Nov 08, 2016 at 13:40 Date of Discharge: Nov 11, 2016 Providers: Admitting Physician: Ciarra Lion DO Primary Care Physician: Brittany Leyva MD Attending Physician: Ciarra Lion DO Diagnosis at Time of Discharge Diagnosis at Time of Discharge Acute renal failure, hyponatremia, hyperuricemia, anemia due to blood loss vs chronic disease, Pulmonary Hypertension, RV Heart Failure, Rhuematoid Arthritis , Diverticulosis, Cognitive Deficits Consultations Nephrology, Cardiology, GI Procedures XRay, CTs & MRIs [facility] Diagnostic Imaging Department [place], [place] [id number] Patient Name: DANNIELLE GUIDRY MR#: [id number] Location: [facility] [place] Ordering Phys: Ciarra Lion DO Date of Service: 11/08/16 1725 PROCEDURE: US RENAL SONOGRAM INDICATIONS: acute renal failure TECHNIQUE: Real-time scanning was performed of the kidneys and bladder, with image documentation. COMPARISON: None. FINDINGS: Kidneys: Kidneys are normal in size. Right kidney measures 11.6 cm long; left kidney measures 10.1 cm long. Right renal cortical thickness is 1.2 cm; left renal cortical thickness is 1.0 cm. Renal cortical echotexture is normal. No hydronephrosis or nephrolithiasis. No suspicious solid mass lesions. Bladder: Pre-void bladder volume is 275 mL. Post-void residual is 109 mL. Pre -void images demonstrate no intraluminal masses or stones. On pre-void images, neither ureteral jets are noted with color Doppler interrogation. (Of note, ureteral jets may not be detectable in up to 25% of cases due to insufficient differences in specific gravity between ureteral and bladder urine). Miscellaneous: No free pelvic fluid. IMPRESSION: No hydronephrosis or nephrolithiasis found over the kidneys bilaterally but there is a moderate post void residual of 109 cc in the setting of the prevoid bladder volume of 275 cc. No bladder calculus found. Dictated by: Toi Bragg M.D. on 11/09/2016 at 11:41 Approved by: Toi Bragg M.D. on 11/09/2016 at 11:42 [facility] Diagnostic Imaging Department [place], [place] [id number] Patient Name: DANNIELLE GUIDRY MR#: [id number] Location: [facility] [place] Ordering Phys: Pranav Ciarra Archer DO Date of Service: 11/08/161923 PROCEDURE: X-RAY CHEST ONE VIEW ([id number]) INDICATIONS: elevated BNP, check for CHF TECHNIQUE: One view of the chest was acquired. COMPARISON: [facility], CR, XR CHEST 1VW, 04/28/2015, 4:12. FINDINGS: Surgical changes and devices: None. Lungs and pleura: No pleural effusions or pneumothorax. Lungs are clear. Mediastinum: Mediastinal contours appear normal. Heart size is enlarged. Bones and chest wall: No suspicious bony lesions. Overlying soft tissues appear unremarkable. IMPRESSION: No acute process. Cardiomegaly. Dictated by: Rafael Cisse M.D. on 11/09/2016 at 8:53 Approved by: Rafael Cisse M.D. on 11/09/2016 at 8:53 None ECG 12 Lead None Cardiac Echo Impression [facility] Diagnostic Imaging Department [place], [place] [id number] Patient Name: DANNIELLE GUIDRY MR#: [id number] Location: [facility] [place] Ordering Phys: Vincent Diaz DO Date of Service: 11/10/16 1106 [facility] [address] [place] [address] Echocardiogram Report Name: DANNIELLE GUIDRY LStudy Date: 11/10/2016 Height: 67 in Hospital Exam Location: [facility] Weight: 22 4 lb Gender: Female BSA: 2.1 m2 : 1950 Age: 65 yrs BP: 120/72 mmHg Reason For Study: Fluid overload, Congestive Heart Failure Ordering Physician: [facility] Performed By: Reuben Benoit Referring Physician: VINCENT CANO Interpretation Summary 1) Normal left ventricular thickness, size, and systolic function (EF 65- 70%). 2) Flattened septum is consistent with RV pressure/volume overload. 3) Severely dilated right ventricle with moderately reduced function. 4) Mitral clip present on the mitral valve with moderate anteriorly directed mitral regurgitation. 5) Severe inflow mitral gradient present (mean 14mmHg). Heart rate during the echo was in the 90s. 6) Severe tricuspid regurgitation present. 7) Severe pulmonary hypertension present, estimated systolic pulmonary pressure of 89mmHg. 8) Severe biatrial enlargement present with functional bidirectional ASD present. 9) Compared to the Echo done 11/21/2014, transmitral gradient is higher on today's study but this is probably due to increased heart rate on today's study. Procedure: A two-dimensional transthoracic echocardiogram with color flow and Doppler was performed. Parasternal images are fair; apical images are difficult. Definity was not used due to bidirectional shunt. Comparison is made with the echocardiogram of 11/21/14. The heart rate ranged between 90-108 bpm during the study. Left Ventricle: The left ventricle is normal in size. Left ventricular wall thickness is mildly increased. The ejection fraction is estimated to be 65- 70%. Left ventricular systolic function is normal. Flattened septum is consistent with RV pressure/volume overload. Assessment of diastolic parameters suggests a pseudonormalization pattern, consistent with elevated filling pressures. Right Ventricle: The right ventricle is severely dilated. Right ventricular systolic function is moderate to severely reduced. Atria: The left atrium is severely dilated. The right atrium is severely dilated. There is a small ASD that is bidirectional. Mitral Valve: A mitral valve clip is present. The mitral valve mean gradient is 14 mmHg. There is a eccentric jet of moderate MR aimed anteriorly. Aortic Valve: The aortic valve is trileaflet. The aortic valve is slightly calcified. There is no aortic valve stenosis. No aortic regurgitation is present. Tricuspid Valve: The tricuspid valve is not well visualized, but is grossly normal. There is severe tricuspid regurgitation. The right ventricular systolic pressure is estimated at 89 mmHg assuming a right atrial pressure of 8 mm Hg. Pulmonic Valve: The pulmonic valve is not well seen, but is grossly normal. There is no pulmonic valvular regurgitation. Great Vessels: The aortic root is normal size. The dimensions of the ascending aorta are normal. The pulmonary artery is normal size. The IVC is dilated (diameter is greater than 2.1 cm) yet it collapses greater than 50% with a sniff. This suggests a right atrial pressure of 8 mm Hg. Pericardium/ Pleura There is no pericardial effusion. There is no pleural effusion. MMode/2D Measurements & Calculations LVIDd: 4.8 cm RA long axis LVOT diam: 2.0 cm LVIDs: 2.9 cm LA A2 area: 28.2 cm Ao root diam FS: 39.2 % LA A4 area: 28.5 cm RA area IVSd: 1.0 cm LA length (vol) asc Aorta Diam LVPWd: 0.88 cm : 26.1 cm LA vol: 106.6 ml RA vol Ao Arch Diam (Prox LA vol index : 94.9 ml Trans): 2.2 cm RA : 44.7 mm2 IVC diam: 2.3 cm LV griffiths. diameter/BSA LV sys. diameter/BSA TAPSE: 1.1 cm (cm/m^2): 2.3 (cm/m^2): 1.4 Doppler Measurements & Calculations Ao V2 max: 149.3 cm/sec MV E max huber MV E/A: 1.5 TR max huber Ao max P.9 mmHg : 285.4 cm/sec : 451.2 cm/sec Ao mean P.6 mmHg MV A max huber TR max PG LVOT Max Huber : 196.3 cm/sec : 81.4 mmHg : 109.7 cm/sec PA V2 max MVA(VTI): 0.79 cm2 : 133.1 cm/sec ENZO(I,D): 2.5 cm PA mean PG sev ratio: 0.78 : 3.8 mmHg MV V2 mean: 184.0 cm/secAo V2 mean LV V1 max PG PA V2 mean MV mean P.3 mmHg : 101.3 cm/sec : 94.7 cm/sec MV V2 VTI: 60.4 cm Ao V2 VTI: 18.9 cm LV V1 VTI PA pr(Accel) MV dec time: 0.22 sec : 14.9 cm : 49.4 mmHg ENZO(V,D): 2.4 cm2 ENZO indexed to BSA (cm^2/m^2): 1.2 Reading Physician:03:08 PM Brief History This is a 65-year-old female with past medical history of diverticulosis, sigmoid colon malfunction, pericardial effusions, anemia status post transfusions, cognitive problems, CHF, CAD, status post CT, status post mitral valve surgery 2, diabetes, hypertension is presenting to the ER from her survey director's clinic. It appears that patient's sodium was thought to be very low and she was sent to the ER from her clinic. In the ER hemoglobin was 7.7 sodium was 116. She is not a great historian and rambles on and go soft tangents, her sister is present but states "it is all in the records", and states she does not remember things very well. Sister is patient's POA. Patient states that she is given torsemide, metolazone by her high court justice. She sees him every [address] Peacock her high court justice and Dr. Leyva is her PCP. She also sees Dr. aguila in [place]. Patient's sister did say that last night patient's caregiver called sister about patient not acting quite like herself. Patient herself states that she has hemorrhoids and had bleeding from that in the past. Her stool guaiac in the ER was positive. Her blood pressure at the time of arrival was 99/53. Off note patient did have an endoscopy in 2012 that showed diverticulosis, hemorrhoids and there was a recommendation to follow with capsule endoscopy if bleeding recurs. In the room patient is conversing asking for her fluid, coffee. She was a lot more cooperative once the food and copy was given to her. Sister states that patient is at her baseline at this point. 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 She also appears to be in acute renal failure. Acute assessments Assessment #1 acute kidney injury: Likely prerenal from aggressive diuresis, resolved -- Creatinine of 1.84, from her previous admission she did have this level creatinine before, unclear what exactly her baseline is as she did improve to 1.0 at the time of discharge back in June 2016, on 11/11/16, she is back to wnl -- Elevated uric acid : Nephrology has started her on allopurinol. -- This appears to be prerenal based on FE urea tests -- Renal ultrasound showed no acute findings -- magnesium phosphorus WNL, uric acid is elevated, urine osm are >100, serum osm<280, urine sodium is 17, TSH, cortisol are elavted, Pro BNP elevated > 6000 -- Currently on a fluid restriction per nephrology. -- Consulted nephrology, Dr. Wright is aware we appreciate the recommendations -- Plan to contact PCP Dr. Leyva for some of the records -- Restarted Torsemide at half her home dose, 20 mg PO BID. Plan to advance her diuretics cautiously. Tomorrow plan to give full home dose. Following day, reinstate her metolazone. Assessment #2 hyponatremia: hypovolemia, including EABV depletion state, ie CHF. -- Resolved. At the time of admission 113, now normalized. ---Magnesium phosphorus WNL, uric acid is elevated, urine osm are >100, serum osm<280, urine sodium is 17, TSH, cortisol are elavated, Pro BNP elevated > 6000 -- Follow-ups sodium upon arrival to floor is 113, now 126 -- Nephrology is consulted, there recommendations are appreciated -- From analyzng the data, it appears that patient has hypovolemia, including EABV depletion state, ie CHF. Assessment #2 anemia likely due to blood loss likely secondary to AV malformation based on her history -- Type and screen, crossmatch one unit of blood ( we initially crossmatch [address] wright recommends starting with 1 this patient has a history of CHF) -- Iron panel, ferritin, TIBC, folate, B12, reticulocyte count were ordered -- GI: has seen the patient performed a colonoscopy, he recommends a double balloon small-bowel enteroscopy down at [facility] if no bleeding source is found. Other findings include clinical gastroparesis, Nonobstructing Schatzki's, colonic diverticulitis, Nonobstructing Schatzki's, .Moderately engorged and irritated internal and external hemorrhoids. -- Continue to monitor H&H, today she dropped by a unit to 7.1 this AM, 7.8 in the evening prior to her transfer Assessment #3 hypotension -- Stable, continue to hold antihypertensives -- Restarted torsemide as above, plan to restart her meds gradually as her electrolytes look better. Chronic assessments Assessment #1 diabetes mellitus -- Plan on giving patient's Lantus 20 units daily at bedtime plus low sliding scale+ 5 units TIDWM -- Nothing by mouth after midnight, diabetic diet prior to that -- Hold glipizide Assessment #2 hypertension: --Currently holding her medications, diuretics -- Fluids as above -- Patient is currently stable -- hold hydralazine -- Metoprolol is restarted at 25 mg ER. Plan to increase to her home dose as she continues to improve. Assessment #3 congestive heart failure of unknown type -- Holding diuresis as above -- Metoprolol is restarted at 25 mg ER. Plan to increase to her home dose as she continues to improve. -- Echo is ordered today by nephrology : showed severe pulm HTN as above -- Discussed the case with cardiology. Assessment #4 hypothyroidism -- Continue levothyroxine Assessment #5 CAD -- EKG, baseline chest x-ray -- Telemonitoring DVT prophylaxis: We will hold chemical DVT prophylaxis due to bleeding risk CODE STATUS: Discussed with patient and POAHaider Lindsay remains full code as she does not completely grasp the discussion and sister does not want to make that decision for her. Alternate decision-maker: Sr. Marylin Alcaraz, 36 0-3 9 1-2 272 Exam Vital Signs (Last) Date Time Temp Pulse Resp B/P Pulse Ox O2 Delivery O2 Flow Rate FiO2 11/11/16 14:42 105 18 92 Room Air 11/11/16 14:30 36.7 119/77 11/10/16 15:20 2 Exam Gen.: No acute distress conversing with caregiver ENT: Normocephalic, atraumatic mild proptosis is present Heart: Can hear the mitral valve click, and systolic murmur. regular rate and rhythm Lungs clear to auscultation bilaterally Neck negative for JVD vascular swollen arms and legs Site negative for anxiety neurological: Alert and oriented by 3 Test 11/08/16 10:00 11/08/16 10:47 11/08/16 11:10 11/08/16 17:35 Urine Osmolality 274mOs/kH2O (250-1200) Urine Random Sodium 17mEq/L Urine Urea Nitrogen 239mg/dL (Not Estab.) Hemoglobin A1c 7.7% (4.8-5.6) Urine Color Straw (YELLOW) Urine Appearance Clear (CLEAR,HAZY) Urine pH 6.5 (5.0-8.0) Urine Specific [place] 1.010 (1.003-1.035) Urine Protein Negativemg/dL (NEG,TRACE) Urine Glucose (UA) Negativemg/dL (NEGATIVE) Urine Ketones Negativemg/dL (NEGATIVE) Urine Occult Blood Negative (NEGATIVE) Urine Nitrite Negative (NEGATIVE) Urine Bilirubin Negative (NEGATIVE) Urine Urobilinogen Normalmg/dL (NORMAL) Urine Leukocyte Esterase Negative (NEGATIVE) Urine RBC 0-2/hpf (0-2) Urine WBC 0-5/hpf (0-5) Urine Epithelial Cells Moderate/hpf (NONE-MOD) Urine Crystals None seen (NONE SEEN) Urine Bacteria Few/hpf (NONE-FEW) Urine Hyaline Casts None/lpf (NONE) Urine Granular Casts None seen (NONE SEEN) Urine Waxy Casts None seen (NONE SEEN) Urine Red Blood Cell Casts None seen (NONE SEEN) Urine White Blood Cell Casts None seen (NONE SEEN) Urine Mucus None seen (None Seen) Urine Trichomonas None seen (NONE SEEN) Urine Yeast None (NONE SEEN) Urinalysis Comment None Urine Culture Reflexed Not indicated Reticulocyte Count,Calculated 10.1% (0.6-2.6) Osmolality 267 (275-300) Phosphorus Level 4.4mg/dL (2.5-4.9) Iron Level 14ug/dL (35-150) Total Iron Binding Capacity 432ug/dL (250-450) Percent Iron Saturation 3%sat (15-50) Unsaturated Iron Binding 417.9ug/dL Ferritin 50ng/mL (13-150) Pro-B-Type Natriuretic Peptide 6978pg/mL (0-287) Vitamin B12 Level >1999pg/mL (211-946) Folate > 19.9ng/mL (>3.0) Thyroid Stimulating Hormone (TSH) 2.390uIU/mL (0.450-4.500) Cortisol 17.2ug/dL (.) Test 11/09/16 00:00 11/09/16 09:25 11/10/16 05:17 11/11/16 05:24 Urine Random Creatinine 37mg/dL (15-278) Neutrophils (%) (Auto) 75.6% (40-74) Lymphocytes (%) (Auto) 8.1% (14-46) Monocytes (%) (Auto) 14.4% (4-12) Eosinophils (%) (Auto) 0.9% (0-5) Basophils (%) (Auto) 0.3% (0-3) Uric Acid 9.1mg/dL (2.6-7.2) White Blood Count 9.3th/mm3 (3.8-10.1) Red Blood Count 2.52mil/mm3 (3.90-5.20) Hemoglobin 7.1g/dL (12.0-15.6) Hematocrit 23.8% (35.0-46.0) Mean Corpuscular Volume 94.4fL (81-100) Mean Corpuscular Hemoglobin 28.2pg (27.0-35.0) Mean Corpuscular Hemoglobin Concent 29.8% (32.0-37.0) Red Cell Distribution Width 16.8% (12.3-15.4) Platelet Count 242bil/L (150-400) Sodium Level 135mEq/L (134-144) Potassium Level 3.1mEq/L (3.5-5.2) Chloride Level 92mEq/L (97-108) Carbon Dioxide Level 27mmol/L (18-29) Blood Urea Nitrogen 15mg/dL (8-27) Creatinine 1.09mg/dL (0.57-1.00) Estimat Glomerular Filtration Rate 73mL/min (>59) Glucose Level 218mg/dL (60-99) Calcium Level 8.9mg/dL (8.5-10.1) Magnesium Level 1.9mg/dL (1.6-2.6) Total Bilirubin 0.5mg/dL (0.0-1.2) Aspartate Amino Transf (AST/SGOT) 52U/L (0-50) Alanine Aminotransferase (ALT/SGPT) 45U/L (0-32) Alkaline Phosphatase 114U/L (25-165) Total Protein 6.0g/dL (6.4-8.4) Albumin 3.1g/dL (3.4-5.0) Hepatitis C Comment . Discharge Medications Discharge Medications Allopurinol (Allopurinol) 100 Mg Tablet 100 MG PO BID (Reported) Ascorbic Acid (Vitamin C) 125 Mg Tab.chew 125 MG PO DAILY (Reported) Aspirin (Aspirin) 81 Mg Tablet 81 MG PO DAILY (Reported) Calcium Carbonate (Calci-Mix) 500 Mg Capsule 500 MG PO DAILY (Reported) Cholecalciferol (Vitamin D3) (Vitamin D3) 1,000 Unit Tab.chew 2,000 UNIT PO DAILY (Reported) Citalopram (Citalopram) 10 Mg Tablet 10 MG PO AM (Reported) Cyanocobalamin (Vitamin B-12) (Vitamin B-12) 100 Mcg Tablet 100 MCG PO DAILY ( Reported) Docusate Sodium (Colace) 100 Mg Capsule 100 MG PO BID (Reported) Fluticasone Propionate (Fluticasone Propionate Nasal) 16 Gm Vale.susp 1 SPRAY NS BID (Reported) Glucosa Ferguson 2Kcl/Chondroitin Ferguson (Glucosamine Chondroitin Caplet) 1 Each Tablet 1 EACH PO DAILY (Reported) Insulin Glargine (Lantus U100 Insulin Vial) 100 Unit/Ml Vial 20 UNITS SUBQ HS ( Reported) Insulin Human Lispro (HumaLOG U100 Insulin Vial) 100 Unit/Ml Unit 0 UNIT SUBQ WMHS Check blood sugars before meals and at bedtime. Use correction factor only before meals. Blood Sugar Lispro Correction: <151, 0 units; 151-175, 1 unit; 176-200, 2 units; 201-225, 3 units; 226-250, 4 units; 251-275, 5 units; 276-300 , 6 units; 301-325, 7 units; 326-350, 8 units; 351-375, 9 units; 376-400, 10 units; >400, 12 units. Prescribed by: CIARRA LION DO Levothyroxine (Levothyroxine) 125 Mcg Tablet 125 MCG PO DAILY (Reported) Loratadine (Claritin) 10 Mg Capsule 10 MG PO DAILY (Reported) Magnesium Oxide (Magnesium) 500 Mg Capsule 500 MG PO DAILY (Reported) Metoprolol Succinate ER (Metoprolol Succinate ER) 25 Mg Tab.er.24h 25 MG PO DAILY Prescribed by: CIARRA LION DO Multivitamin (Multivitamins) 1 Each Capsule 1 EACH PO DAILY (Reported) Omeprazole (Omeprazole) 20 Mg Capsule.dr 20 MG PO DAILY (Reported) Polyethylene Glycol 3350 (Miralax) 17 Gm Powd.pack 17 GM PO DAILY (Reported) Potassium Chloride ER (Klor-Con M20) 20 Meq Tablet 20 MEQ PO QID (Reported) Ranitidine (Ranitidine) 150 Mg Capsule 150 MG PO BID (Reported) Simvastatin (Simvastatin) 40 Mg Tablet 40 MG PO HS (Reported) Torsemide (Demadex) 20 Mg Tablet 20 MG PO BID Prescribed by: CIARRA LION DO As needed Acetaminophen (Acetaminophen) 500 Mg Tablet 500 MG PO TID PRN PRN For Pain ( Reported) Albuterol HFA (Proair HFA) 8.5 Gm Hfa.aer.ad 2 PUFFS INHALATION Q4H PRN PRN For Shortness of Breath (Reported) Clotrimazole 2% (Gyne-Lotrimin 3 2%) 21 Gm Cream.appl 1 APPLIC TOPICAL BID PRN PRN PRN (Reported) Cyclobenzaprine (Cyclobenzaprine) 10 Mg Tablet 10 MG PO BID PRN PRN Spasm ( Reported) Hydrocortisone (Anusol-Hc) 30 Gm Cream..g. 1 APPLIC RC DAILY PRN PRN PRN ( Reported) Ipratropium/Albuterol Sulfate (Iprat-Albut 0.5-3(2.5) mg/3 mL Inhalant Soln) 3 Ml Ampul.neb 3 ML IH Q4 PRN PRN For Shortness of Breath (Reported) Nitroglycerin SL (Nitrostat) 0.3 Mg Tab.subl 0.3 MG PO Q5MIN PRN PRN For Chest Pain (Reported) Sennosides (Senna) 8.6 Mg Tablet 8.6 MG PO DAILY PRN PRN For Constipation ( Reported) Simethicone (Gas-X) 125 Mg Capsule 125 MG PO TIDWM PRN PRN For GI Cramps ( Reported) Tramadol (Tramadol) 50 Mg Tablet 50 MG PO BID PRN PRN For Pain (Reported) hydrOXYzine Hcl (HydrOXYzine Hcl) 25 Mg Tablet 25 MG PO TID PRN PRN For Itching (Reported) Miscellaneous Medications Albuterol Neb Soln (Albuterol Neb Soln) 2.5 Mg/3 Ml Vial.neb 2.5 MG INHALATION ( Reported) Additional med instructions Patient has received two doses of venofer 200 mg IV. She has also received one unit of blood. and darbepoeiten. She was re-started on her home medication Torsemide at 20 mg PO BID (home dose 40 mg PO BID) She is currently on a fluid restriciton : 1500 cc per day Followup Plan Follow-up plan As determined by the receiving hospital. Discharge Diet: Low fat, Low Sodium, Heart Healthy, Diabetic Discharge Activity: No restrictions Ciarra Lion DO Nov 11, 2016 17:33
[2016-11-11] MEDS ORDERED: MeTOProlol XL 25 mg ER24 Tablet PO SCH (17:40)
[2016-11-11] MEDS ORDERED: METO25TA99 PO (17:42)
--- NOTE | 2016-11-11 18:05 | PROG NOTE ---
[address] [address] PROGRESS NOTE PATIENT: DANNIELLE GUIDRY : 1950 MR#: [id number] ADMIT: 11/08/2016 JOB ID: [id number] DATE: 11/11/2016 SUBJECTIVE: The patient had not had a bowel movement yet, so no further visible bleeding. She is quite concerned that she needs something a little more proactive for her hemorrhoids and requests Anusol. OBJECTIVE: Heart rate in the low 100s, afebrile. Normal pressure. She was sitting up at the bedside getting bathed. Her sister Reinaldo was also present during the visit. LABORATORY DATA: White count 9.3, hemoglobin 7.1. Creatinine 1.09. ASSESSMENT AND PLAN: This is a 65-year-old female with chronic anemia and moderately engorged internal hemorrhoids who had an episode of bright red blood prior to admission. I recommend longstanding fiber supplementation to facilitate soft, regular bowel movement and avoid straining. I have written the patient for a 7-day course of Anusol HC 25 mg suppositories twice daily. I will sign off for now. I would like to see the patient back in the office in about 4-6 weeks with a CBC prior to the visit. Will see how she is getting on at that time and really specifically whether she has a progressively falling blood count. In that event, I would be inclined to pursue referral down for double balloon small-bowel enteroscopy. In the meantime I agree with 1000 mg of iron sucrose over a 14-day period. I see that she got a 200 mg dose of this today. She will need four more doses over the next two weeks. NOTE: This is a no-charge physician visit. Please do not submit a physician charge for ths particular note.
--- NOTE | 2016-11-11 19:38 | NUR ---
Transfer: Patient is getting transfered to [facility] per hospitalist and GI . Patient signed the transfer consent. Patents sister was informed of the transfer. Patient recieved IV Iron and Aranesp today as ordered .
[2016-11-11] MEDS: Insulin GLARgine 100 Unit/mL Syringe SUBQ SCH (21:02)
[2016-11-12 01:31] VITALS: BP 101/65; PULSE 101; RESP 19; O2SAT 96
[2016-11-12 04:59] VITALS: BP 97/62; PULSE 97; RESP 18; O2SAT 97
[2016-11-12 06:08] LABS: Hepatitis A Antibody IgM Negative (Negative); Hepatitis B Core Antibody IgM Negative (Negative)
--- NOTE | 2016-11-12 06:10 | NUR ---
Transfer Pt is now en-route to [facility]. Report given to Naty LERMA. Pt's VSS and has been afebrile. Addendum: 11/12/16 at 0630 by AARON DILLON RN Pt's item and belongings on bag. Pt was transferred on [facility] ambulance.
[2016-11-12 06:31] VITALS: PULSE 103
--- NOTE | 2016-11-13 14:58 | PATH ---
SURGICAL PATHOLOGY Attending Physician:Eunice Chavez CASE STATUS: Signed Out PATIENT NAME: DANNIELLE GUIDRY PID: [id number] : 1950 DATE COLLECTED:11/10/2016 00:00 SPECIMEN: Colon, Biopsy CLINICAL HISTORY: GI BLEEDING 1). ASCENDING COLON POLYP FINAL DIAGNOSIS: Ascending Colon Polyp: Tubular adenoma. ICD10 D12.2 GROSS DESCRIPTION: The specimen is received in one formalin filled container labeled with the patient's name, sublabeled "ascending colon polyp" and consists of a 0.3 x 0.3 x 0.2 CM portion of tissue which is entirely submitted in one cassette. 11/11/2016 [facility] ICD-9 CODES: CPT CODES: 1: 38587 Electronically Signed Out Tim Andre MD [facility] Pathology [facility] [place] [address] Technical component performed at [facility], [address] [place] [address] [address], [place], [address]
== END 2016-11-12 06:05 | disposition short-term general hospital (02) | DRG 812 ==
LOC: SED 09:12 → EDBD 09:12 → MPC 13:40
PROVIDERS: ADMIT Family Medicine; ATTEND Family Medicine
PROC: 30233N1 Transfusion of Nonautologous Red Blood Cells into Peripheral Vein, Percutaneous Approach (ICD-10-PCS; 2016-11-08)
PROC: 0DBK8ZX Excision of Ascending Colon, Via Natural or Artificial Opening Endoscopic, Diagnostic (ICD-10-PCS; principal; 2016-11-10 14:00)
PROC: 0DJ08ZZ Inspection of Upper Intestinal Tract, Via Natural or Artificial Opening Endoscopic (ICD-10-PCS; 2016-11-10 14:00)
DX: D50.9 Iron deficiency anemia, unspecified (principal); E87.1 Hypo-osmolality and hyponatremia; I13.0 Hypertensive heart and chronic kidney disease with heart failure and stage 1 through stage 4 chronic kidney disease, or unspecified chronic kidney disease; N17.9 Acute kidney failure, unspecified; I50.32 Chronic diastolic (congestive) heart failure; F17.200 Nicotine dependence, unspecified, uncomplicated; E03.9 Hypothyroidism, unspecified; E11.21 Type 2 diabetes mellitus with diabetic nephropathy; E11.65 Type 2 diabetes mellitus with hyperglycemia; N18.9 Chronic kidney disease, unspecified; E11.40 Type 2 diabetes mellitus with diabetic neuropathy, unspecified; E78.5 Hyperlipidemia, unspecified; K64.8 Other hemorrhoids; K44.9 Diaphragmatic hernia without obstruction or gangrene; I27.2 Other secondary pulmonary hypertension; K57.30 Diverticulosis of large intestine without perforation or abscess without bleeding; I25.10 Atherosclerotic heart disease of native coronary artery without angina pectoris; E87.6 Hypokalemia; I34.0 Nonrheumatic mitral (valve) insufficiency; Z79.82 Long term (current) use of aspirin; Z87.440 Personal history of urinary (tract) infections; I25.2 Old myocardial infarction; Z88.0 Allergy status to penicillin; Z95.2 Presence of prosthetic heart valve; Z79.51 Long term (current) use of inhaled steroids; Z79.4 Long term (current) use of insulin